=== PATIENT | female | born 1945 | race American Indian/Alaskan Native ===

== ENCOUNTER 2019-04-17 10:41 | Inpatient (IN) | payer MEDICARE ==
--- NOTE | 2019-04-17 13:24 | Cat Scan Report ---
CT abdomen pelvis wo con INDICATION: GI bleed llq ab pain. TECHNIQUE: All CT scans at this location are performed using the following dose modulation technique: Automated exposure control. CONTRAST: None. COMPARISON: 02/24/2018. CT abdomen: Evaluation of the parenchymal organs demonstrates a cyst at the upper pole of the left ki dney posteriorly measuring 4.3 cm. The remaining parenchymal organs are unremarkable. Negative for abdominal mass, fluid or inflammation. The bowel is not dilated or thickened. A fat-cont aining umbilical hernia is small. CT PELVIS: Negative for pelvic mass, fluid collection or inflammation. Noninflamed diverticula are sc attered within the colon. Status post previous hysterectomy. IMPRESSION: 1. Negative for obstruction or localized inflammation. 2. Nonobstructing colonic diverticulosis. Signer Name: Davide Browne MD Signed: 04/17/2019 1:19 PM Workstation Name: [id number]
--- NOTE | 2019-04-17 13:40 | Emergency Department Report ---
ED General Adult HPI - General Chief complaint: GI Bleed Stated complaint: GI BLEED Time Seen by Provider: 04/17/19 11:08 Source: patient Mode of arrival: Stretcher Limitations: No Limitations - History of Present Illness Initial comments: The patient presents to the emergency department with chief complaint of a GI bleed. Patient was recently discharged from the [facility]ation [facility]. Patient also complains of left lower quadrant abdominal pain as well. Patient denies any chest pain, stress breath, or headache. Upon EMS arrival her systolic blood pressure was in the 70s but arrived to the emergency department with a systolic blood pressure greater than 100 after receiving a liter of fluid. -: Sudden Location: abdomen Radiation: non-radiation Severity scale (0 -10): 5 Quality: aching Consistency: constant Improves with: none Worsens with: none Associated Symptoms: denies other symptoms Treatments Prior to Arrival: none - Related Data Home Medications Medication Instructions Recorded Confirmed Last Taken Acetaminophen [Acetaminophen TAB] 500 mg PO TID 04/12/19 04/12/19 Unknown AtorvaSTATin [Lipitor] 40 mg PO QHS 04/12/19 04/12/19 Unknown Cyclobenzaprine [Flexeril 10 MG 10 mg PO TID PRN 04/12/19 04/12/19 Unknown TAB] Divalproex ER [Depakote ER] 250 mg PO BID 04/12/19 04/12/19 Unknown Doxazosin Mesylate 8 mg PO BID 04/12/19 04/12/19 Unknown Folic Acid/Vit B Complex and C 800 mg PO QDAY 04/12/19 04/12/19 Unknown [Dialyvite 800 Chewable Wafer] Furosemide [Lasix TAB] 40 mg PO QDAY 04/12/19 04/12/19 Unknown Insulin Aspart (Nf) [NovoLOG 100 7 units SUB-Q TID 04/12/19 04/12/19 Unknown UNITS/ML VIAL] Insulin Glargine [Lantus VIAL] 10 unit SUB-Q QHS 04/12/19 04/12/19 Unknown Losartan [Cozaar] 50 mg PO BID 04/12/19 04/12/19 Unknown OLANzapine [Zyprexa] 10 mg PO DAILY 04/12/19 04/12/19 Unknown Pregabalin 25 mg PO QDAY 04/12/19 04/12/19 Unknown Previous Rx's Medication Instructions Recorded Last Taken Type Metoprolol [Lopressor TAB] 50 mg PO BID #60 tablet 04/14/19 Unknown Rx Pantoprazole [Protonix TAB] 40 mg PO BID #60 tablet 04/14/19 Unknown Rx Allergies Allergy/AdvReac Type Severity Reaction Status Date / Time iodine Allergy Unknown Verified 04/17/19 11:03 morphine Allergy Unknown Verified 04/17/19 11:03 Penicillins Allergy Vomiting Verified 04/17/19 11:03 Sulfa (Sulfonamide Allergy Vomiting Verified 04/17/19 11:03 Antibiotics) ED Review of Systems ROS: Stated complaint: GI BLEED Other details as noted in HPI Constitutional: denies: chills, fever Eyes: denies: eye pain, eye discharge, vision change ENT: denies: ear pain, throat pain Respiratory: denies: cough, shortness of breath, wheezing Cardiovascular: denies: chest pain, palpitations Endocrine: no symptoms reported Gastrointestinal: abdominal pain, melena. denies: nausea, diarrhea Genitourinary: denies: urgency, dysuria, discharge Musculoskeletal: denies: back pain, joint swelling, arthralgia Skin: denies: rash, lesions Neurological: denies: headache, weakness, paresthesias Psychiatric: denies: anxiety, depression Hematological/Lymphatic: denies: easy bleeding, easy bruising ED Past Medical Hx - Past Medical History Previous Medical History?: Yes Hx Hypertension: Yes (CHF) Hx CVA: Yes (tia) Hx Heart Attack/AMI: No Hx Congestive Heart Failure: Yes Hx Diabetes: Yes Hx Deep Vein Thrombosis: No Hx Pulmonary Embolism: No Hx GERD: Yes Hx Liver Disease: No Hx Renal Disease: Yes (Chronic kidney disease, episode of acute renal failure s/p knee replacement) Hx Sickle Cell Disease: No Hx Arthritis: Yes Hx Headaches / Migraines: No Hx Seizures: Yes (Quesstionable, not confirmed) Hx Kidney Stones: No Hx Psychiatric Treatment: No Hx Asthma: No Hx COPD: No Hx Tuberculosis: No Hx Dementia: Yes Hx HIV: No - Surgical History Past Surgical History?: Yes Hx Pacemaker: No Hx Internal Defibrillator: No Hx Appendectomy: Yes Additional Surgical History: right knee replacement. Hysterectomy. abdominal exploratory surgery - Social History Smoking Status: Never Smoker - Medications Home Medications: Home Medications Medication Instructions Recorded Confirmed Last Taken Type Acetaminophen [Acetaminophen TAB] 500 mg PO TID 04/12/19 04/12/19 Unknown Histo ry AtorvaSTATin [Lipitor] 40 mg PO QHS 04/12/19 04/12/19 Unknown History Cyclobenzaprine [Flexeril 10 MG 10 mg PO TID PRN 04/12/19 04/12/19 Unknown History TAB] Divalproex ER [Depakote ER] 250 mg PO BID 04/12/19 04/12/19 Unknown History Doxazosin Mesylate 8 mg PO BID 04/12/19 04/12/19 Unknown History Folic Acid/Vit B Complex and C 800 mg PO QDAY 04/12/19 04/12/19 Unknown History [Dialyvite 800 Chewable Wafer] Furosemide [Lasix TAB] 40 mg PO QDAY 04/12/19 04/12/19 Unknown History Insulin Aspart (Nf) [NovoLOG 100 7 units SUB-Q TID 04/12/19 04/12/19 Unknown History UNITS/ML VIAL] Insulin Glargine [Lantus VIAL] 10 unit SUB-Q QHS 04/12/19 04/12/19 Unknown History Losartan [Cozaar] 50 mg PO BID 04/12/19 04/12/19 Unknown History OLANzapine [Zyprexa] 10 mg PO DAILY 04/12/19 04/12/19 Unknown History Pregabalin 25 mg PO QDAY 04/12/19 04/12/19 Unknown History Metoprolol [Lopressor TAB] 50 mg PO BID #60 tablet 04/14/19 Unknown Rx Pantoprazole [Protonix TAB] 40 mg PO BID #60 tablet 04/14/19 Unknown Rx ED Physical Exam - General Limitations: No Limitations General appearance: alert, in no apparent distress - Head Head exam: Present: atraumatic, normocephalic - Eye Eye exam: Present: normal appearance, PERRL, EOMI - ENT ENT exam: Present: mucous membranes moist - Neck Neck exam: Present: normal inspection - Respiratory Respiratory exam: Present: normal lung sounds bilaterally. Absent: respiratory distress - Cardiovascular Cardiovascular Exam: Present: regular rate, normal rhythm. Absent: systolic murmur, diastolic murmur, rubs, gallop - GI/Abdominal GI/Abdominal exam: Present: soft, distended, normal bowel sounds. Absent: tenderness (tpp llq) - Rectal Rectal exam: Present: black stool - Extremities Exam Extremities exam: Present: normal inspection - Back Exam Back exam: Present: normal inspection - Neurological Exam Neurological exam: Present: alert, oriented X3, CN II-XII intact. Absent: motor sensory deficit - Psychiatric Psychiatric exam: Present: normal affect, normal mood - Skin Skin exam: Present: warm, dry, intact, normal color. Absent: rash ED Course Vital Signs 04/17/19 04/17/19 04/17/19 11:30 11:44 11:45 Pulse Rate 110 H 107 H Respiratory 25 H 18 24 Rate Blood Pressure 176/71 O2 Sat by Pulse 91 97 98 Oximetry 04/17/19 04/17/19 12:00 12:15 Pulse Rate 110 H 107 H Respiratory 25 H 24 Rate Blood Pressure 163/81 169/71 O2 Sat by Pulse 98 98 Oximetry ED Medical Decision Making - Lab Data Result diagrams: 04/17/19 13:25 04/17/19 13:25 Lab Results 04/17/19 04/17/19 Range/Units 13:25 13:25 WBC 20.3 H (4.5-11.0) K/mm3 RBC 2.74 L (3.65-5.03) M/mm3 Hgb 8.5 L (10.1-14.3) gm/dl Hct 25.4 L (30.3-42.9) % MCV 93 (79-97) fl MCH 31 (28-32) pg MCHC 33 (30-34) % RDW 17.8 H (13.2-15.2) % Plt Count 313 (140-440) K/mm3 Sodium 140 (137-145) mmol/L Potassium 4.4 D (3.6-5.0) mmol/L Chloride 95.8 L (98-107) mmol/L Carbon Dioxide 23 (22-30) mmol/L Anion Gap 26 mmol/L BUN 40 H (7-17) mg/dL Creatinine 6.0 H D (0.7-1.2) mg/dL Estimated GFR 8 ml/min BUN/Creatinine Ratio 7 % Glucose 98 (65-100) mg/dL Calcium 8.8 (8.4-10.2) mg/dL Total Bilirubin 0.40 (0.1-1.2) mg/dL AST 25 (5-40) units/L ALT 17 (7-56) units/L Alkaline Phosphatase < 5 L (35-129) units/L Total Protein 6.4 (6.3-8.2) g/dL Albumin < 0.2 L (3.9-5) g/dL Albumin/Globulin Ratio 0.0 % - Radiology Data Radiology results: report reviewed - Medical Decision Making After reviewing the patient's prior hospital stay was discovered that her last GI bleed was likely upper in nature and thus Protonix bolus and drip started during his ED stay CT scan shows diverticulosis without diverticulitis Elevated white count was likely secondary to a marginal elevation and acute stress reaction Hemoglobin is 8.5 Patient will be admitted for further evaluation of her recurrent GI bleed and for serial hemoglobin and hematocrits Critical Care Time: Yes Critical care time in (mins) excluding proc time.: 35 Critical care attestation.: If time is entered above; I have spent that time in minutes in the direct care of this critically ill patient, excluding procedure time. ED Disposition Clinical Impression: GI bleed, Diverticulosis Disposition: DC- TO HOME OR SELFCARE Is pt being admited?: Yes Does the pt Need Aspirin: No Condition: Stable Forms: Accompanied Note Time of Disposition: 14:11
[2019-04-17] MEDS ORDERED: PANTOPRAZOLE 40 MG INJ IV ONE ×2 (13:46→14:35)
[2019-04-17 13:54] LABS: Alanine Aminotransferase 17 units/L (7-56); BUN/Creatinine Ratio 7; Blood Urea Nitrogen 40 mg/dL (7-17); Calcium 8.8 mg/dL (8.4-10.2); Hemolysis Index 2
[2019-04-17 13:57] LABS: Hematocrit 25.4 % (30.3-42.9); Hemoglobin 8.5 gm/dl (10.1-14.3); Mean Corpuscular HGB Conc 33 % (30-34); Mean Corpuscular Volume 93 fl (79-97); Red Blood Count 2.74 M/mm3 (3.65-5.03); Red Cell Distribution Width 17.8 % (13.2-15.2)
[2019-04-17 13:59] LABS: Albumin < 0.2 g/dL (3.9-5)
[2019-04-17 14:05] LABS: Platelet Count 313 K/mm3 (140-440)
--- NOTE | 2019-04-17 15:12 | Consultation ---
History of Present Illness - Reason for Consult Consult date: 04/17/19 end stage renal disease - History of Present Illness RFC: ESRD on HD HPI: Ms Herr is a 74 year old F with a PMH of ESRD on HD MWF who has been admitted to the [facility] with GIB. Pt currently denies any CP, SHOB, headache. Pt's BP was low on presentation to the ER and is now better. She is on HD MWF. ROS: As in HPI otherwise 12 point review of systems -ve Past Medical History: diabetes, heart failure, hypertension, other (see HPI) Past Surgical History: appendectomy, , hysterectomy, total knee re placement, Other Social history: lives with family. denies: smoking, alcohol abuse Family history: diabetes, hypertension Medications and Allergies Allergies Allergy/AdvReac Type Severity Reaction Status Date / Time iodine Allergy Unknown Verified 04/17/19 11:03 morphine Allergy Unknown Verified 04/17/19 11:03 Penicillins Allergy Vomiting Verified 04/17/19 11:03 Sulfa (Sulfonamide Allergy Vomiting Verified 04/17/19 11:03 Antibiotics) Home Medications Medication Instructions Recorded Confirmed Last Taken Type Acetaminophen [Acetaminophen TAB] 500 mg PO TID 04/12/19 04/17/19 Unknown History AtorvaSTATin [Lipitor] 40 mg PO QHS 04/12/19 04/17/19 Unknown History Cyclobenzaprine [Flexeril 10 MG 10 mg PO TID PRN 04/12/19 04/17/19 Unknown Hi story TAB] Divalproex ER [Depakote ER] 250 mg PO BID 04/12/19 04/17/19 Unknown History Doxazosin Mesylate 8 mg PO BID 04/12/19 04/17/19 Unknown History Folic Acid/Vit B Complex and C 800 mg PO QDAY 04/12/19 04/17/19 Unknown History [Dialyvite 800 Chewable Wafer] Furosemide [Lasix TAB] 40 mg PO QDAY 04/12/19 04/17/19 Unknown History Insulin Aspart (Nf) [NovoLOG 100 7 units SUB-Q TID 04/12/19 04/17/19 Unknown History UNITS/ML VIAL] Insulin Glargine [Lantus VIAL] 10 unit SUB-Q QHS 04/12/19 04/17/19 Unknown History Losartan [Cozaar] 50 mg PO BID 04/12/19 04/17/19 Unknown History OLANzapine [Zyprexa] 10 mg PO DAILY 04/12/19 04/17/19 Unknown History Pregabalin 25 mg PO QDAY 04/12/19 04/17/19 Unknown History Metoprolol [Lopressor TAB] 50 mg PO BID #60 tablet 04/14/19 04/17/19 Unknown Rx Pantoprazole [Protonix TAB] 40 mg PO BID #60 tablet 04/14/19 04/17/19 Unknown Rx Active Meds: Active Medications Pantoprazole Sodium 80 mg/ (Sodium Chloride) 100 mls @ 10 mls/hr IV DIRECT THAD Exam - Vital Signs Vital signs: Vital Signs Pulse Resp Pulse Ox 110 H 25 H 91 04/17/19 11:30 04/17/19 11:30 04/17/19 11:30 - Physical Exam Narrative exam: GE: Awake HEENT:Normocephalic Neck:Supple CVS:RRR Chest:Coarse BS BL Abd:Soft/BS+ Ext:No cce UG:No Avalos Results - Lab Results 04/17/19 13:25 04/17/19 13:25 Most recent lab results Calcium 8.8 mg/dL (8.4-10.2) 04/17/19 13:25 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 every MWF Seth Durán MD [phone]
[2019-04-17] MEDS ORDERED: SODIUM CHLORIDE 0.9% 100 ML IV PRN (15:20)
[2019-04-17 15:48] LABS: Band Neutrophils # (Manual) 0.4 K/mm3; Eosinophils % (Manual) 0 % (0.0-4.3); Total Cells Counted 100
[2019-04-17 15:49] LABS: Basophils % (Manual) 0 % (0.0-1.8)
[2019-04-17 15:50] LABS: Hypochromasia Few; Platelet Estimate Consistent w Auto; Target Cells Few
[2019-04-17] MEDS ORDERED: MORPHINE 2 MG/1 ML INJ IV PRN (17:02)
[2019-04-17] MEDS ORDERED: ACETAMINOPHEN 325 MG TAB PO PRN (17:02)
[2019-04-17] MEDS ORDERED: METOCLOPRAMIDE 10 MG/2 ML INJ IV PRN (17:02)
[2019-04-17] MEDS ORDERED: ONDANSETRON 4 MG/2 ML INJ IV PRN (17:02)
[2019-04-17] MEDS: PANTOPRAZOLE 80 MG in SODIUM CHLORIDE 0.9% 100 ML IV SCH (17:37)
[2019-04-17] MEDS: D5W/0.9% NACL 1,000 ML IV SCH (17:50)
[2019-04-17] MEDS ORDERED: SODIUM CHLORIDE 0.9% 500 ML 500 ML IV ONE (18:03)
[2019-04-17] MEDS ORDERED: cloNIDine TTS 0.3 MG/24 HR PATCH TD SCH (19:00)
[2019-04-17] MEDS: INSULIN LISPRO 100 UNIT/ML SUB-Q SCH (20:34)
[2019-04-17 22:10] LABS: INR 1.3 (0.87-1.13)
[2019-04-17 22:12] LABS: Partial Thromboplastin Time 48.5 Sec. (24.2-36.6)
[2019-04-18] MEDS: INSULIN LISPRO 100 UNIT/ML SUB-Q SCH ×4 (00:22→17:19)
[2019-04-18 01:32] LABS: Hematocrit 21.2 % (30.3-42.9)
[2019-04-18] MEDS: PANTOPRAZOLE 80 MG in SODIUM CHLORIDE 0.9% 100 ML IV SCH (03:01)
[2019-04-18 04:48] LABS: Mean Corpuscular HGB Conc 33 % (30-34); Mean Corpuscular Volume 92 fl (79-97); Platelet Count 297 K/mm3 (140-440); Red Blood Count 2.27 M/mm3 (3.65-5.03)
[2019-04-18 05:09] LABS: Albumin 2.6 g/dL (3.9-5); Calcium 8.7 mg/dL (8.4-10.2)
[2019-04-18 05:44] LABS: Total Cells Counted 100
[2019-04-18 05:45] LABS: Anisocytosis Few; Band Neutrophils # (Manual) 0.1 K/mm3; Basophils % (Manual) 0 % (0.0-1.8); Eosinophils % (Manual) 0 % (0.0-4.3); Hypochromasia Few
[2019-04-18 05:47] LABS: Platelet Estimate Consistent w Auto; Target Cells Rare
--- NOTE | 2019-04-18 06:51 | History and Physical Report ---
History of Present Illness Date of examination: 04/17/19 Date of admission: 04/17/19 14:12 Chief complaint: Lower GI bleed 1 day History of present illness: 74 y/o AAF with multiple medical problems including HT CHF and ESRD comes in for GI bleed.Has BRBPR since yesterday.On arrival in ED patient was hypotensive.BP improved with IV fluids.Patient had recent GI bleed and had EGD.But no colonoscopy. Past Medical History Previous Medical History?: Yes Hypertension: Yes (CHF) CVA: Yes (tia) Congestive Heart Failure: Yes Diabetes GERD: Yes Renal Disease: Yes (Chronic kidney disease, episode of acute renal failure s/p knee replacement) Arthritis: Yes Seizures: Yes Dementia: Yes Surgical History Past Surgical History?: Yes Appendectomy: Yes Additional Surgical History: right knee replacement. Hysterectomy. abdominal exploratory surgery Social History Smoking Status: Never Smoker Family History Htn - Medications Home Medications: Home Medications Medication Instructions Recorded Confirmed Last Taken Type Acetaminophen [Acetaminophen TAB] 500 mg PO TID 04/12/19 04/12/19 Unknown Hi story AtorvaSTATin [Lipitor] 40 mg PO QHS 04/12/19 04/12/19 Unknown History Cyclobenzaprine [Flexeril 10 MG 10 mg PO TID PRN 04/12/19 04/12/19 Unknown History TAB] Divalproex ER [Depakote ER] 250 mg PO BID 04/12/19 04/12/19 Unknown History Doxazosin Mesylate 8 mg PO BID 04/12/19 04/12/19 Unknown History Folic Acid/Vit B Complex and C 800 mg PO QDAY 04/12/19 04/12/19 Unknown History [Dialyvite 800 Chewable Wafer] Furosemide [Lasix TAB] 40 mg PO QDAY 04/12/19 04/12/19 Unknown History Insulin Aspart (Nf) [NovoLOG 100 7 units SUB-Q TID 04/12/19 04/12/19 Unknown History UNITS/ML VIAL] Insulin Glargine [Lantus VIAL] 10 unit SUB-Q QHS 04/12/19 04/12/19 Unknown Hist ory Losartan [Cozaar] 50 mg PO BID 04/12/19 04/12/19 Unknown History OLANzapine [Zyprexa] 10 mg PO DAILY 04/12/19 04/12/19 Unknown History Pregabalin 25 mg PO QDAY 04/12/19 04/12/19 Unknown History Metoprolol [Lopressor TAB] 50 mg PO BID #60 tablet 04/14/19 Unknown Rx Pantoprazole [Protonix TAB] 40 mg PO BID #60 tablet 04/14/19 Unknown Rx Review of Systems ROS: Stated complaint: GI BLEED Other details as noted in HPI Constitutional: denies: chills, fever Eyes: denies: eye pain, eye discharge, vision change ENT: denies: ear pain, throat pain Respiratory: denies: cough, shortness of breath, wheezing Cardiovascular: denies: chest pain, palpitations Endocrine: no symptoms reported Gastrointestinal: abdominal pain, melena. denies: nausea, diarrhea Genitourinary: denies: urgency, dysuria, discharge Musculoskeletal: denies: back pain, joint swelling, arthralgia Skin: denies: rash, lesions Neurological: denies: headache, weakness, paresthesias Psychiatric: denies: anxiety, depression Hematological/Lymphatic: denies: easy bleeding, easy bruising Medications and Allergies Allergies Allergy/AdvReac Type Severity Reaction Status Date / Time iodine Allergy Unknown Verified 04/17/19 11:03 morphine Allergy Unknown Verified 04/17/19 11:03 Penicillins Allergy Vomiting Verified 04/17/19 11:03 Sulfa (Sulfonamide Allergy Vomiting Verified 04/17/19 11:03 Antibiotics) Home Medications Medication Instructions Recorded Confirmed Last Taken Type Acetaminophen [Acetaminophen TAB] 500 mg PO TID 04/12/19 04/17/19 Unknown History AtorvaSTATin [Lipitor] 40 mg PO QHS 04/12/19 04/17/19 Unknown History Cyclobenzaprine [Flexeril 10 MG 10 mg PO TID PRN 04/12/19 04/17/19 Unknown History TAB] Divalproex ER [Depakote ER] 250 mg PO BID 04/12/19 04/17/19 Unknown History Doxazosin Mesylate 8 mg PO BID 04/12/19 04/17/19 Unknown History Folic Acid/Vit B Complex and C 800 mg PO QDAY 04/12/19 04/17/19 Unknown History [Dialyvite 800 Chewable Wafer] Furosemide [Lasix TAB] 40 mg PO QDAY 04/12/19 04/17/19 Unknown History Insulin Aspart (Nf) [NovoLOG 100 7 units SUB-Q TID 04/12/19 04/17/19 Unknown His tory UNITS/ML VIAL] Insulin Glargine [Lantus VIAL] 10 unit SUB-Q QHS 04/12/19 04/17/19 Unknown History Losartan [Cozaar] 50 mg PO BID 04/12/19 04/17/19 Unknown History OLANzapine [Zyprexa] 10 mg PO DAILY 04/12/19 04/17/19 Unknown History Pregabalin 25 mg PO QDAY 04/12/19 04/17/19 Unknown History Metoprolol [Lopressor TAB] 50 mg PO BID #60 tablet 04/14/19 04/17/19 Unknown Rx Pantoprazole [Protonix TAB] 40 mg PO BID #60 tablet 04/14/19 04/17/19 Unknown Rx Active Meds: Active Medications Clonidine HCl (Catapres-Tts Patch) 0.3 mg TD Temple [facility] Last Admin: 04/17/19 21:05 Dose: 0.3 mg Documented by: Hydromorphone HCl (Dilaudid) 0.5 mg IV Q3H PRN PRN Reason: Pain , Severe (7-10) Pantoprazole Sodium 80 mg/ (Sodium Chloride) 100 mls @ 10 mls/hr IV DIRECT [facility] Last Admin: 04/18/19 03:01 Dose: 8 mg/hr, 10 mls/hr Documented by: Sodium Chloride (Nacl 0.9%) 100 mls @ 999 mls/hr IV BRIGIDA PRN PRN Reason: Hypotension Dextrose/Sodium Chloride (D5ns) 1,000 mls @ 42 mls/hr IV DIRECT [facility] Last Admin: 04/17/19 17:50 Dose: 75 mls/hr Documented by: Insulin Human Lispro (Humalog) 0 unit SUB-Q Q6HR [facility]; Protocol Last Admin: 04/18/19 00:22 Dose: Not Given Documented by: Metoclopramide HCl (Reglan) 10 mg IV Q6H PRN PRN Reason: Nausea And Vomiting Morphine Sulfate (Morphine) 2 mg IV Q4H PRN PRN Reason: Pain, Moderate (4-6) Ondansetron HCl (Zofran) 4 mg IV Q3H PRN PRN Reason: Nausea And Vomiting Sodium Chloride (Sodium Chloride Flush Syringe 10 Ml) 10 ml IV BID [facility] Last Admin: 04/17/19 21:07 Dose: 10 ml Documented by: Sodium Chloride (Sodium Chloride Flush Syringe 10 Ml) 10 ml IV PRN PRN PRN Reason: LINE FLUSH Exam - Constitutional Vitals: Temp Pulse Resp BP Pulse Ox 99.5 F 103 H 20 147/60 92 04/18/19 02:37 04/18/19 02:37 04/18/19 02:37 04/18/19 03:01 04/18/19 02:37 General appearance: Present: no acute distress, well-nourished - EENT Eyes: Present: PERRL ENT: hearing intact, clear oral mucosa - Neck Neck: Present: supple, normal ROM - Respiratory Respiratory effort: normal Respiratory: bilateral: CTA - Cardiovascular Heart rate: 78 Rhythm: regular Heart Sounds: Present: S1 & S2. Absent: rub, click - Extremities Extremities: pulses symmetrical, No edema Peripheral Pulses: within normal limits - Abdominal General gastrointestinal: Present: soft, non-tender, non-distended, normal bowel sounds Female genitourinary: Present: normal - Rectal Rectal Exam: stool bloody - Integumentary Integumentary: Present: clear, warm, dry - Musculoskeletal Musculoskeletal: gait normal, strength equal bilaterally - Psychiatric Psychiatric: appropriate mood/affect, intact judgment & insight - Neurologic Neurologic: CNII-XII intact, moves all extremities - Allied Health Allied health notes reviewed: nursing, case management Results - Labs CBC & Chem 7: 04/18/19 04:32 04/18/19 04:32 Labs: Laboratory Last Values WBC 12.4 K/mm3 (4.5-11.0) H 04/18/19 04:32 RBC 2.27 M/mm3 (3.65-5.03) L 04/18/19 04:32 Hgb 7.0 gm/dl (10.1-14.3) L 04/18/19 04:32 Hct 21.0 % (30.3-42.9) L 04/18/19 04:32 MCV 92 fl (79-97) 04/18/19 04:32 MCH 31 pg (28-32) 04/18/19 04:32 MCHC 33 % (30-34) 04/18/19 04:32 RDW 17.0 % (13.2-15.2) H 04/18/19 04:32 Plt Count 297 K/mm3 (140-440) 04/18/19 04:32 Add Manual Diff Complete 04/18/19 04:32 Total Counted 100 04/18/19 04:32 Seg Neuts % (Manual) 79.0 % (40.0-70.0) H 04/18/19 04:32 Band Neutrophils % 1.0 % 04/18/19 04:32 Lymphocytes % (Manual) 8.0 % (13.4-35.0) L 04/18/19 04:32 Reactive Lymphs % (Man) 0 % 04/18/19 04:32 Monocytes % (Manual) 8.0 % (0.0-7.3) H 04/18/19 04:32 Eosinophils % (Manual) 0 % (0.0-4.3) 04/18/19 04:32 Basophils % (Manual) 0 % (0.0-1.8) 04/18/19 04:32 Metamyelocytes % 4.0 % 04/18/19 04:32 Myelocytes % 0 % 04/18/19 04:32 Promyelocytes % 0 % 04/18/19 04:32 Blast Cells % 0 % 04/18/19 04:32 Nucleated RBC % Not Reportable 04/18/19 04:32 Seg Neutrophils # Man 9.8 K/mm3 (1.8-7.7) H 04/18/19 04:32 Band Neutrophils # 0.1 K/mm3 04/18/19 04:32 Lymphocytes # (Manual) 1.0 K/mm3 (1.2-5.4) L 04/18/19 04:32 Abs React Lymphs (Man) 0.0 K/mm3 04/18/19 04:32 Monocytes # (Manual) 1.0 K/mm3 (0.0-0.8) H 04/18/19 04:32 Eosinophils # (Manual) 0.0 K/mm3 (0.0-0.4) 04/18/19 04:32 Basophils # (Manual) 0.0 K/mm3 (0.0-0.1) 04/18/19 04:32 Metamyelocytes # 0.5 K/mm3 04/18/19 04:32 Myelocytes # 0.0 K/mm3 04/18/19 04:32 Promyelocytes # 0.0 K/mm3 04/18/19 04:32 Blast Cells # 0.0 K/mm3 04/18/19 04:32 WBC Morphology Not Reportable 04/18/19 04:32 Hypersegmented Neuts Not Reportable 04/18/19 04:32 Hyposegmented Neuts Not Reportable 04/18/19 04:32 Hypogranular Neuts Not Reportable 04/18/19 04:32 Smudge Cells Not Reportable 04/18/19 04:32 Toxic Granulation Not Reportable 04/18/19 04:32 Toxic Vacuolation Not Reportable 04/18/19 04:32 Dohle Bodies Not Reportable 04/18/19 04:32 Pelger-Huet Anomaly Not Reportable 04/18/19 04:32 [place] Rods Not Reportable 04/18/19 04:32 Platelet Estimate Consistent w auto 04/18/19 04:32 Clumped Platelets Not Reportable 04/18/19 04:32 Plt Clumps, EDTA Not Reportable 04/18/19 04:32 Large Platelets Not Reportable 04/18/19 04:32 Giant Platelets Not Reportable 04/18/19 04:32 Platelet Satelliting Not Reportable 04/18/19 04:32 Plt Morphology Comment Not Reportable 04/18/19 04:32 RBC Morphology Not Reportable 04/18/19 04:32 Dimorphic RBCs Not Reportable 04/18/19 04:32 Polychromasia Not Reportable 04/18/19 04:32 Hypochromasia Few 04/18/19 04:32 Poikilocytosis Not Reportable 04/18/19 04:32 Anisocytosis Few 04/18/19 04:32 Microcytosis Not Reportable 04/18/19 04:32 Macrocytosis Not Reportable 04/18/19 04:32 Spherocytes Not Reportable 04/18/19 04:32 Pappenheimer Bodies Not Reportable 04/18/19 04:32 Sickle Cells Not Reportable 04/18/19 04:32 Target Cells Rare 04/18/19 04:32 Tear Drop Cells Not Reportable 04/18/19 04:32 Ovalocytes Not Reportable 04/18/19 04:32 Helmet Cells Not Reportable 04/18/19 04:32 [place] Bodies Not Reportable 04/18/19 04:32 [place] Rings Not Reportable 04/18/19 04:32 Hemant Cells Not Reportable 04/18/19 04:32 Bite Cells Not Reportable 04/18/19 04:32 Crenated Cell Not Reportable 04/18/19 04:32 Elliptocytes Rare 04/18/19 04:32 Acanthocytes (Spur) Not Reportable 04/18/19 04:32 Rouleaux Not Reportable 04/18/19 04:32 Hemoglobin C Crystals Not Reportable 04/18/19 04:32 Schistocytes Not Reportable 04/18/19 04:32 Malaria parasites Not Reportable 04/18/19 04:32 Dimitri Bodies Not Reportable 04/18/19 04:32 Hem Pathologist Commnt No 04/18/19 04:32 PT 16.4 Sec. (12.2-14.9) H 04/17/19 21:35 INR 1.30 (0.87-1.13) H 04/17/19 21:35 APTT 48.5 Sec. (24.2-36.6) H 04/17/19 21:35 Sodium 140 mmol/L (137-145) 04/18/19 04:32 Potassium 4.0 mmol/L (3.6-5.0) 04/18/19 04:32 Chloride 98.2 mmol/L (98-107) 04/18/19 04:32 Carbon Dioxide 24 mmol/L (22-30) 04/18/19 04:32 Anion Gap 22 mmol/L 04/18/19 04:32 BUN 45 mg/dL (7-17) H 04/18/19 04:32 Creatinine 7.0 mg/dL (0.7-1.2) H 04/18/19 04:32 Estimated GFR 7 ml/min 04/18/19 04:32 BUN/Creatinine Ratio 6 % 04/18/19 04:32 Glucose 123 mg/dL (65-100) H 04/18/19 04:32 POC Glucose 111 (70-105) H 04/17/19 17:47 Hemoglobin A1c < 4.0 % (4-6) L 04/18/19 04:32 Calcium 8.7 mg/dL (8.4-10.2) 04/18/19 04:32 Total Bilirubin 0.40 mg/dL (0.1-1.2) 04/18/19 04:32 AST 19 units/L (5-40) 04/18/19 04:32 ALT 11 units/L (7-56) 04/18/19 04:32 Alkaline Phosphatase 84 units/L (35-129) 04/18/19 04:32 Total Protein 5.9 g/dL (6.3-8.2) L 04/18/19 04:32 Albumin 2.6 g/dL (3.9-5) L 04/18/19 04:32 Albumin/Globulin Ratio 0.8 % 04/18/19 04:32 Blood Type A POSITIVE 04/17/19 21:35 Antibody Screen Negative 04/17/19 21:35 Short CBC 04/17/19 04/18/19 04/18/19 Range/Units 13:25 00:32 04:32 WBC 20.3 H 12.4 H (4.5-11.0) K/mm3 Hgb 8.5 L 7.0 L 7.0 L (10.1-14.3) gm/dl Hct 25.4 L 21.2 L 21.0 L (30.3-42.9) % Plt Count 313 297 (140-440) K/mm3 BMP 04/17/19 04/18/19 13:25 04:32 Sodium 140 140 Potassium 4.4 D 4.0 Chloride 95.8 L 98.2 Carbon Dioxide 23 24 BUN 40 H 45 H Creatinine 6.0 H D 7.0 H Glucose 98 123 H Calcium 8.8 8.7 Liver Function 04/17/19 04/18/19 Range/Units 13:25 04:32 Total Bilirubin 0.40 0.40 (0.1-1.2) mg/dL AST 25 19 (5-40) units/L ALT 17 11 (7-56) units/L Alkaline Phosphatase < 5 L 84 (35-129) units/L Albumin < 0.2 L 2.6 L (3.9-5) g/dL - Imaging and Cardiology Imaging and Cardiology: CT abd IMPRESSION: 1. Negative for obstruction or localized inflammation. 2. Nonobstructing colonic diverticulosis. Assessment and Plan Advance Directives: Yes (FC) VTE prophylaxis?: Mechanical Plan of care discussed with patient/family: Yes - Patient Problems (1) GI bleed Current Visit: Yes Status: Acute Qualifiers: GI bleed type/associated pathology: diverticulosis Qualified Code(s): K57.91 - Diverticulosis of intestine, part unspecified, without perforation or abscess with bleeding Plan to address problem: Transfuse one unit prbc to 2 units prbc GI consult For Colonoscopy (2) Diverticulosis Current Visit: Yes Status: Chronic Plan to address problem: On CT abdomen High fiber diet (3) ESRD on hemodialysis Current Visit: No Status: Chronic Plan to address problem: Cont HD (4) HTN (hypertension) Current Visit: No Status: Chronic Qualifiers: Hypertension type: essential hypertension Qualified Code(s): I10 - Essent ial (primary) hypertension Plan to address problem: On catapress patch for now Resume antihypertensives when she starts eating (5) IDDM (insulin dependent diabetes mellitus) Current Visit: No Status: Chronic Plan to address problem: Insulin coverage for now Check A1c (6) Peripheral neuropathy Current Visit: No Status: Chronic Qualifiers: Peripheral neuropathy type: polyneuropathy, unspecified Qualified Code(s): G62.9 - Polyneuropathy, unspecified Plan to address problem: Hold Gabapentin for now (7) DVT prophylaxis Current Visit: No Status: Acute Plan to address problem: On Scd'sand GI prophylaxis
--- NOTE | 2019-04-18 07:45 | Progress Note ---
Assessment and Plan Assessment and plan: Patient is a 74-year-old female with HTN, CHF, DM, ESRD on HD (M, W, F), TIA, obesity hypoventilation syndrome presents to ED for evaluation via EMS noted with bright red blood per rectum and hypotensive. She was recently discharged from the hospital after an upper endoscopy showed a clean-based ulcer with antral gastritis without bleeding and was to follow with GI for pathology. During that admission the family had declined rehab but wanted the patient to spend an additional day in the hospital for dialysis prior to being discharged repeat hemoglobin actually shows improvement prior to the patient being discharged the patient was discharged on PPI twice daily and to avoid NSAIDs. * She returns as noted above with continued complaint of bright red blood per rectum and with leukocytosis and worsening anemia compared to discharge. * GI has been consulted for possible colonoscopy as patient with recurrent bleed Symptomatic anemia GI bleed possible lower GI bleed possible diverticular bleed Hypotensive Antral gastritis End-stage renal disease Chronic pain syndrome Morbid obesity Diabetes mellitus Peripheral neuropathy Stable congestive heart failure systolic presumed Leukocytosis likely reactive-improving Anemia of chronic disease SIRS without organ dysfunction Diverticulosis Plan Supportive care Transfuse 1 unit packed red blood cell Await colonoscopy results if no source identified may need to rule out diverticular bleed Nephrology consult, continue hemodialysis Strongly recommend rehab on discharge inpatient or outpatient. Diabetic management with Accu-Cheks Continue to hold gabapentin DVT and GI prophylaxis with SCDs and PPI. Will update family once we have good control or understanding of why patient has repeated bleed History Interval history: Patient is seen and examined, remains lethargic, denies abdominal pain. Continues to report generalized weakness but vehemently declines rehab. Hospitalist Physical - Physical exam Narrative exam: VITAL SIGNS: Reviewed. GENERAL: The patient appears normally developed,lethargic, chronically ill appearing. Vital signs as documented. HEAD: No signs of head trauma. EYES: Pupils are equal. Extraocular motions intact. EARS: Hearing grossly intact. MOUTH: Oropharynx is normal. NECK: No adenopathy, no JVD. CHEST: Chest with diminished breath sounds bilaterally. No wheezes, rales, or rhonchi. CARDIAC: Regular rate and rhythm. S1 and S2, without murmurs, gallops, or rubs. VASCULAR: No Edema. Peripheral pulses normal and equal in all extremities. ABDOMEN: Soft, non tender and non distended. No rebound or guarding, and no masses palpated. Bowel Sounds normal. MUSCULOSKELETAL: Extremities without clubbing, cyanosis or edema. NEUROLOGIC EXAM: lethergic, awake, and oriented x 3 generalized weakness. Speech normal. Follows commands. PSYCHIATRIC: Mood normal. SKIN: detail exam as documented in skin assessment - Constitutional Vitals: Temp Pulse Resp BP Pulse Ox 99.5 F 103 H 20 147/60 92 04/18/19 02:37 04/18/19 02:37 04/18/19 02:37 04/18/19 03:01 04/18/19 02:37 General appearance: Present: no acute distress, well-nourished Results - Labs CBC & Chem 7: 04/18/19 04:32 04/18/19 04:32 Labs: Laboratory Last Values WBC 12.4 K/mm3 (4.5-11.0) H 04/18/19 04:32 RBC 2.27 M/mm3 (3.65-5.03) L 04/18/19 04:32 Hgb 7.0 gm/dl (10.1-14.3) L 04/18/19 04:32 Hct 21.0 % (30.3-42.9) L 04/18/19 04:32 MCV 92 fl (79-97) 04/18/19 04:32 MCH 31 pg (28-32) 04/18/19 04:32 MCHC 33 % (30-34) 04/18/19 04:32 RDW 17.0 % (13.2-15.2) H 04/18/19 04:32 Plt Count 297 K/mm3 (140-440) 04/18/19 04:32 Add Manual Diff Complete 04/18/19 04:32 Total Counted 100 04/18/19 04:32 Seg Neuts % (Manual) 79.0 % (40.0-70.0) H 04/18/19 04:32 Band Neutrophils % 1.0 % 04/18/19 04:32 Lymphocytes % (Manual) 8.0 % (13.4-35.0) L 04/18/19 04:32 Reactive Lymphs % (Man) 0 % 04/18/19 04:32 Monocytes % (Manual) 8.0 % (0.0-7.3) H 04/18/19 04:32 Eosinophils % (Manual) 0 % (0.0-4.3) 04/18/19 04:32 Basophils % (Manual) 0 % (0.0-1.8) 04/18/19 04:32 Metamyelocytes % 4.0 % 04/18/19 04:32 Myelocytes % 0 % 04/18/19 04:32 Promyelocytes % 0 % 04/18/19 04:32 Blast Cells % 0 % 04/18/19 04:32 Nucleated RBC % Not Reportable 04/18/19 04:32 Seg Neutrophils # Man 9.8 K/mm3 (1.8-7.7) H 04/18/19 04:32 Band Neutrophils # 0.1 K/mm3 04/18/19 04:32 Lymphocytes # (Manual) 1.0 K/mm3 (1.2-5.4) L 04/18/19 04:32 Abs React Lymphs (Man) 0.0 K/mm3 04/18/19 04:32 Monocytes # (Manual) 1.0 K/mm3 (0.0-0.8) H 04/18/19 04:32 Eosinophils # (Manual) 0.0 K/mm3 (0.0-0.4) 04/18/19 04:32 Basophils # (Manual) 0.0 K/mm3 (0.0-0.1) 04/18/19 04:32 Metamyelocytes # 0.5 K/mm3 04/18/19 04:32 Myelocytes # 0.0 K/mm3 04/18/19 04:32 Promyelocytes # 0.0 K/mm3 04/18/19 04:32 Blast Cells # 0.0 K/mm3 04/18/19 04:32 WBC Morphology Not Reportable 04/18/19 04:32 Hypersegmented Neuts Not Reportable 04/18/19 04:32 Hyposegmented Neuts Not Reportable 04/18/19 04:32 Hypogranular Neuts Not Reportable 04/18/19 04:32 Smudge Cells Not Reportable 04/18/19 04:32 Toxic Granulation Not Reportable 04/18/19 04:32 Toxic Vacuolation Not Reportable 04/18/19 04:32 Dohle Bodies Not Reportable 04/18/19 04:32 Pelger-Huet Anomaly Not Reportable 04/18/19 04:32 [place] Rods Not Reportable 04/18/19 04:32 Platelet Estimate Consistent w auto 04/18/19 04:32 Clumped Platelets Not Reportable 04/18/19 04:32 Plt Clumps, EDTA Not Reportable 04/18/19 04:32 Large Platelets Not Reportable 04/18/19 04:32 Giant Platelets Not Reportable 04/18/19 04:32 Platelet Satelliting Not Reportable 04/18/19 04:32 Plt Morphology Comment Not Reportable 04/18/19 04:32 RBC Morphology Not Reportable 04/18/19 04:32 Dimorphic RBCs Not Reportable 04/18/19 04:32 Polychromasia Not Reportable 04/18/19 04:32 Hypochromasia Few 04/18/19 04:32 Poikilocytosis Not Reportable 04/18/19 04:32 Anisocytosis Few 04/18/19 04:32 Microcytosis Not Reportable 04/18/19 04:32 Macrocytosis Not Reportable 04/18/19 04:32 Spherocytes Not Reportable 04/18/19 04:32 Pappenheimer Bodies Not Reportable 04/18/19 04:32 Sickle Cells Not Reportable 04/18/19 04:32 Target Cells Rare 04/18/19 04:32 Tear Drop Cells Not Reportable 04/18/19 04:32 Ovalocytes Not Reportable 04/18/19 04:32 Helmet Cells Not Reportable 04/18/19 04:32 [place] Bodies Not Reportable 04/18/19 04:32 [place] Rings Not Reportable 04/18/19 04:32 Hemant Cells Not Reportable 04/18/19 04:32 Bite Cells Not Reportable 04/18/19 04:32 Crenated Cell Not Reportable 04/18/19 04:32 Elliptocytes Rare 04/18/19 04:32 Acanthocytes (Spur) Not Reportable 04/18/19 04:32 Rouleaux Not Reportable 04/18/19 04:32 Hemoglobin C Crystals Not Reportable 04/18/19 04:32 Schistocytes Not Reportable 04/18/19 04:32 Malaria parasites Not Reportable 04/18/19 04:32 Dimitri Bodies Not Reportable 04/18/19 04:32 Hem Pathologist Commnt No 04/18/19 04:32 PT 16.4 Sec. (12.2-14.9) H 04/17/19 21:35 INR 1.30 (0.87-1.13) H 04/17/19 21:35 APTT 48.5 Sec. (24.2-36.6) H 04/17/19 21:35 Sodium 140 mmol/L (137-145) 04/18/19 04:32 Potassium 4.0 mmol/L (3.6-5.0) 04/18/19 04:32 Chloride 98.2 mmol/L (98-107) 04/18/19 04:32 Carbon Dioxide 24 mmol/L (22-30) 04/18/19 04:32 Anion Gap 22 mmol/L 04/18/19 04:32 BUN 45 mg/dL (7-17) H 04/18/19 04:32 Creatinine 7.0 mg/dL (0.7-1.2) H 04/18/19 04:32 Estimated GFR 7 ml/min 04/18/19 04:32 BUN/Creatinine Ratio 6 % 04/18/19 04:32 Glucose 123 mg/dL (65-100) H 04/18/19 04:32 POC Glucose 111 (70-105) H 04/17/19 17:47 Hemoglobin A1c < 4.0 % (4-6) L 04/18/19 04:32 Calcium 8.7 mg/dL (8.4-10.2) 04/18/19 04:32 Total Bilirubin 0.40 mg/dL (0.1-1.2) 04/18/19 04:32 AST 19 units/L (5-40) 04/18/19 04:32 ALT 11 units/L (7-56) 04/18/19 04:32 Alkaline Phosphatase 84 units/L (35-129) 04/18/19 04:32 Total Protein 5.9 g/dL (6.3-8.2) L 04/18/19 04:32 Albumin 2.6 g/dL (3.9-5) L 04/18/19 04:32 Albumin/Globulin Ratio 0.8 % 04/18/19 04:32 Blood Type A POSITIVE 04/17/19 21:35 Antibody Screen Negative 04/17/19 21:35 Active Medications - Current Medications Current Medications: Generic Name Dose Route Start Last Admin Trade Name Freq PRN Reason Stop Dose Admin Clonidine HCl 0.3 mg 04/17/19 19:00 04/17/19 21:05 Catapres-Tts Patch TD 0.3 mg Temple THAD Administration Hydromorphone HCl 0.5 mg 04/17/19 17:02 Dilaudid IV Q3H PRN Pain , Severe (7-10) Pantoprazole Sodium 80 mg/ 100 mls @ 10 mls/hr 04/17/19 14:00 04/18/19 03:01 Sodium Chloride IV 8 mg/hr DIRECT THAD 10 mls/hr Administration 8 MG/HR Sodium Chloride 100 mls @ 999 mls/hr 04/17/19 15:20 Nacl 0.9% IV BRIGIDA PRN Hypotension Dextrose/Sodium Chloride 1,000 mls @ 42 mls/hr 04/17/19 18:00 04/17/19 17:50 D5ns IV 75 mls/hr DIRECT THAD Administration Insulin Human Lispro 0 unit 04/17/19 19:00 04/18/19 00:22 Humalog SUB-Q Not Given Q6HR THAD Protocol Metoclopramide HCl 10 mg 04/17/19 17:02 Reglan IV Q6H PRN Nausea And Vomiting Morphine Sulfate 2 mg 04/17/19 17:02 Morphine IV Q4H PRN Pain, Moderate (4-6) Ondansetron HCl 4 mg 04/17/19 17:02 Zofran IV Q3H PRN Nausea And Vomiting Sodium Chloride 10 ml 04/17/19 22:00 04/17/19 21:07 Sodium Chloride Flush Syringe 10 Ml IV 10 ml BID THAD Administration Sodium Chloride 10 ml 04/17/19 17:02 Sodium Chloride Flush Syringe 10 Ml IV PRN PRN LINE FLUSH
[2019-04-18] MEDS ORDERED: SODIUM CHLORIDE 0.9% 500 ML 500 ML IV SCH (08:00)
--- NOTE | 2019-04-18 11:01 | Gastroenterology Consultation ---
<RAE HERNANDEZ - Last Filed: 04/18/19 11:22> History of Present Illness - Reason for Consult Consult date: 04/18/19 GI bleed Requesting physician: JENNIFER ARANDA - History of Present Illness Patient is a 74 y/o female with PMH of CHF, DM, HTN, HLD, TIA, obesity, ESRD on HD, chronic anemia (s/p recent bone marrow bx), seizures, dementia, and GERD who presented yesterday to ED with recurrent rectal bleeding with bright red blood after being discharged 2 days ago for GI bleed thought to be diverticular in nature. This morning patient was resting in bed receiving dialysis w/o acute distress. BM x 1 overnight with small about of blood per nursing but no signs of active bleeding this am. No hematemesis or melena. Has continued mild chronic abd discomfort but denies CP, SOB, wt loss, vomiting, diarrhea, or constipation. During recent hospitalization, bleeding scan upon admission was positive for bleeding in the midepigastrium and she underwent EGD that revealed gastritis and a small clean based ulcer w/o bleeding. Last colonoscopy 09/[address] Frazier for anemia that showed diverticulosis, internal hemorrhoids, and mild irritation in rectum with bx results benign. Previously on daily ASA but currently being held due to ulcer as above. Abd CT showed diverticulosis but no acute GI process. Past History Past Medical History: other (see HPI) Past Surgical History: appendectomy, , hysterectomy, total knee replacement Social history: lives with family. denies: smoking, alcohol abuse Medications and Allergies Allergies Allergy/AdvReac Type Severity Reaction Status Date / Time iodine Allergy Unknown Verified 04/17/19 11:03 morphine Allergy Unknown Verified 04/17/19 11:03 Penicillins Allergy Vomiting Verified 04/17/19 11:03 Sulfa (Sulfonamide Allergy Vomiting Verified 04/17/19 11:03 Antibiotics) Home Medications Medication Instructions Recorded Confirmed Last Taken Type Acetaminophen [Acetaminophen TAB] 500 mg PO TID 04/12/19 04/17/19 Unknown History AtorvaSTATin [Lipitor] 40 mg PO QHS 04/12/19 04/17/19 Unknown History Cyclobenzaprine [Flexeril 10 MG 10 mg PO TID PRN 04/12/19 04/17/19 Unknown History TAB] Divalproex ER [Depakote ER] 250 mg PO BID 04/12/19 04/17/19 Unknown History Doxazosin Mesylate 8 mg PO BID 04/12/19 04/17/19 Unknown History Folic Acid/Vit B Complex and C 800 mg PO QDAY 04/12/19 04/17/19 Unknown History [Dialyvite 800 Chewable Wafer] Furosemide [Lasix TAB] 40 mg PO QDAY 04/12/19 04/17/19 Unknown History Insulin Aspart (Nf) [NovoLOG 100 7 units SUB-Q TID 04/12/19 04/17/19 Unknown History UNITS/ML VIAL] Insulin Glargine [Lantus VIAL] 10 unit SUB-Q QHS 04/12/19 04/17/19 Unknown History Losartan [Cozaar] 50 mg PO BID 04/12/19 04/17/19 Unknown History OLANzapine [Zyprexa] 10 mg PO DAILY 04/12/19 04/17/19 Unknown History Pregabalin 25 mg PO QDAY 04/12/19 04/17/19 Unknown History Metoprolol [Lopressor TAB] 50 mg PO BID #60 tablet 04/14/19 04/17/19 Unknown Rx Pantoprazole [Protonix TAB] 40 mg PO BID #60 tablet 04/14/19 04/17/19 Unknown Rx Active Meds: Active Medications Clonidine HCl (Catapres-Tts Patch) 0.3 mg TD [facility] Last Admin: 04/17/19 21:05 Dose: 0.3 mg Documented by: Hydromorphone HCl (Dilaudid) 0.5 mg IV Q3H PRN PRN Reason: Pain , Severe (7-10) Pantoprazole Sodium 80 mg/ (Sodium Chloride) 100 mls @ 10 mls/hr IV DIRECT [facility] Last Admin: 04/18/19 03:01 Dose: 8 mg/hr, 10 mls/hr Documented by: Sodium Chloride (Nacl 0.9%) 100 mls @ 999 mls/hr IV BRIGIDA PRN PRN Reason: Hypotension Dextrose/Sodium Chloride (D5ns) 1,000 mls @ 42 mls/hr IV DIRECT [facility] Last Admin: 04/17/19 17:50 Dose: 75 mls/hr Documented by: Sodium Chloride (Nacl 0.9% 500 Ml) 500 mls @ 0 mls/hr IV ONCE [facility] Stop: 04/18/19 16:00 Insulin Human Lispro (Humalog) 0 unit SUB-Q Q6HR [facility]; Protocol Last Admin: 04/18/19 09:07 Dose: Not Given Documented by: Metoclopramide HCl (Reglan) 10 mg IV Q6H PRN PRN Reason: Nausea And Vomiting Morphine Sulfate (Morphine) 2 mg IV Q4H PRN PRN Reason: Pain, Moderate (4-6) Ondansetron HCl (Zofran) 4 mg IV Q3H PRN PRN Reason: Nausea And Vomiting Sodium Chloride (Sodium Chloride Flush Syringe 10 Ml) 10 ml IV BID [facility] Last Admin: 04/17/19 21:07 Dose: 10 ml Documented by: Sodium Chloride (Sodium Chloride Flush Syringe 10 Ml) 10 ml IV PRN PRN PRN Reason: LINE FLUSH medications reviewed/updated as required Review of Systems - Review of Systems All systems: negative Gastrointestinal: abdominal pain, BRBPR Exam - Constitutional Vital Signs: Temp Pulse Resp BP Pulse Ox 98.9 F 117 H 18 151/63 95 04/18/19 08:15 04/18/19 10:45 04/18/19 08:15 04/18/19 10:45 04/18/19 07:32 General appearance: no acute distress, obese - EENT Eyes: PERRL, EOM intact ENT: hearing intact - Respiratory Respiratory effort: normal Respiratory: bilateral: diminished - Cardiovascular Rhythm: other (tachycardia) - Gastrointestinal General gastrointestinal: Present: soft, non-tender, non-distended, normal bowel sounds, other (obese) - Integumentary Integumentary: Present: warm, dry - Neurologic Neurological: oriented to person, oriented to place - Labs CBC & Chem 7: 04/18/19 04:32 04/18/19 04:32 Lab Results: Laboratory Results - last 24 hr 04/17/19 04/17/19 04/17/19 13:25 13:25 17:47 WBC 20.3 H RBC 2.74 L Hgb 8.5 L Hct 25.4 L MCV 93 MCH 31 MCHC 33 RDW 17.8 H Plt Count 313 Add Manual Diff Complete Total Counted 100 Seg Neuts % (Manual) 91.0 H Band Neutrophils % 2.0 Lymphocytes % (Manual) 3.0 L Reactive Lymphs % (Man) 0 Monocytes % (Manual) 3.0 Eosinophils % (Manual) 0 Basophils % (Manual) 0 Metamyelocytes % 1.0 Myelocytes % 0 Promyelocytes % 0 Blast Cells % 0 Nucleated RBC % Not Reportable Seg Neutrophils # Man 18.5 H Band Neutrophils # 0.4 Lymphocytes # (Manual) 0.6 L Abs React Lymphs (Man) 0.0 Monocytes # (Manual) 0.6 Eosinophils # (Manual) 0.0 Basophils # (Manual) 0.0 Metamyelocytes # 0.2 Myelocytes # 0.0 Promyelocytes # 0.0 Blast Cells # 0.0 WBC Morphology Not Reportable Hypersegmented Neuts Not Reportable Hyposegmented Neuts Not Reportable Hypogranular Neuts Not Reportable Smudge Cells Not Reportable Toxic Granulation Not Reportable Toxic Vacuolation Not Reportable Dohle Bodies Not Reportable Pelger-Huet Anomaly Not Reportable Burton Rods Not Reportable Platelet Estimate Consistent w auto Clumped Platelets Not Reportable Plt Clumps, EDTA Not Reportable Large Platelets Not Reportable Giant Platelets Not Reportable Platelet Satelliting Not Reportable Plt Morphology Comment Not Reportable RBC Morphology Not Reportable Dimorphic RBCs Not Reportable Polychromasia Few Hypochromasia Few Poikilocytosis Not Reportable Anisocytosis Not Reportable Microcytosis Not Reportable Macrocytosis Not Reportable Spherocytes Not Reportable Pappenheimer Bodies Not Reportable Sickle Cells Not Reportable Target Cells Few Tear Drop Cells Not Reportable Ovalocytes Not Reportable Helmet Cells Not Reportable Weber-Schofield Bodies Not Reportable [place] Rings Not Reportable Hemant Cells Not Reportable Bite Cells Not Reportable Crenated Cell Not Reportable Elliptocytes Not Reportable Acanthocytes (Spur) Not Reportable Rouleaux Not Reportable Hemoglobin C Crystals Not Reportable Schistocytes Not Reportable Malaria parasites Not Reportable Dimitri Bodies Not Reportable Hem Pathologist Commnt No PT INR APTT Sodium 140 Potassium 4.4 D Chloride 95.8 L Carbon Dioxide 23 Anion Gap 26 BUN 40 H Creatinine 6.0 H D Estimated GFR 8 BUN/Creatinine Ratio 7 Glucose 98 POC Glucose 111 H Hemoglobin A1c Calcium 8.8 Total Bilirubin 0.40 AST 25 ALT 17 Alkaline Phosphatase < 5 L Total Protein 6.4 Albumin < 0.2 L Albumin/Globulin Ratio 0.0 Blood Type Antibody Screen 04/17/19 04/17/19 04/18/19 21:35 21:35 00:32 WBC RBC Hgb 7.0 L Hct 21.2 L MCV MCH MCHC RDW Plt Count Add Manual Diff Total Counted Seg Neuts % (Manual) Band Neutrophils % Lymphocytes % (Manual) Reactive Lymphs % (Man) Monocytes % (Manual) Eosinophils % (Manual) Basophils % (Manual) Metamyelocytes % Myelocytes % Promyelocytes % Blast Cells % Nucleated RBC % Seg Neutrophils # Man Band Neutrophils # Lymphocytes # (Manual) Abs React Lymphs (Man) Monocytes # (Manual) Eosinophils # (Manual) Basophils # (Manual) Metamyelocytes # Myelocytes # Promyelocytes # Blast Cells # WBC Morphology Hypersegmented Neuts Hyposegmented Neuts Hypogranular Neuts Smudge Cells Toxic Granulation Toxic Vacuolation Dohle Bodies Pelger-Huet Anomaly Burton Rods Platelet Estimate Clumped Platelets Plt Clumps, EDTA Large Platelets Giant Platelets Platelet Satelliting Plt Morphology Comment RBC Morphology Dimorphic RBCs Polychromasia Hypochromasia Poikilocytosis Anisocytosis Microcytosis Macrocytosis Spherocytes Pappenheimer Bodies Sickle Cells Target Cells Tear Drop Cells Ovalocytes Helmet Cells Weber-Schofield Bodies [place] Cells Bite Cells Crenated Cell Elliptocytes Acanthocytes (Spur) Rouleaux Hemoglobin C Crystals Schistocytes Malaria parasites Dimitri Bodies Hem Pathologist Commnt PT 16.4 H INR 1.30 H APTT 48.5 H Sodium Potassium Chloride Carbon Dioxide Anion Gap BUN Creatinine Estimated GFR BUN/Creatinine Ratio Glucose POC Glucose Hemoglobin A1c Calcium Total Bilirubin AST ALT Alkaline Phosphatase Total Protein Albumin Albumin/Globulin Ratio Blood Type A POSITIVE Antibody Screen Negative 04/18/19 04/18/19 04/18/19 04:32 04:32 04:32 WBC 12.4 H RBC 2.27 L Hgb 7.0 L Hct 21.0 L MCV 92 MCH 31 MCHC 33 RDW 17.0 H Plt Count 297 Add Manual Diff Complete Total Counted 100 Seg Neuts % (Manual) 79.0 H Band Neutrophils % 1.0 Lymphocytes % (Manual) 8.0 L Reactive Lymphs % (Man) 0 Monocytes % (Manual) 8.0 H Eosinophils % (Manual) 0 Basophils % (Manual) 0 Metamyelocytes % 4.0 Myelocytes % 0 Promyelocytes % 0 Blast Cells % 0 Nucleated RBC % Not Reportable Seg Neutrophils # Man 9.8 H Band Neutrophils # 0.1 Lymphocytes # (Manual) 1.0 L Abs React Lymphs (Man) 0.0 Monocytes # (Manual) 1.0 H Eosinophils # (Manual) 0.0 Basophils # (Manual) 0.0 Metamyelocytes # 0.5 Myelocytes # 0.0 Promyelocytes # 0.0 Blast Cells # 0.0 WBC Morphology Not Reportable Hypersegmented Neuts Not Reportable Hyposegmented Neuts Not Reportable Hypogranular Neuts Not Reportable Smudge Cells Not Reportable Toxic Granulation Not Reportable Toxic Vacuolation Not Reportable Dohle Bodies Not Reportable Pelger-Huet Anomaly Not Reportable Burton Rods Not Reportable Platelet Estimate Consistent w auto Clumped Platelets Not Reportable Plt Clumps, EDTA Not Reportable Large Platelets Not Reportable Giant Platelets Not Reportable Platelet Satelliting Not Reportable Plt Morphology Comment Not Reportable RBC Morphology Not Reportable Dimorphic RBCs Not Reportable Polychromasia Not Reportable Hypochromasia Few Poikilocytosis Not Reportable Anisocytosis Few Microcytosis Not Reportable Macrocytosis Not Reportable Spherocytes Not Reportable Pappenheimer Bodies Not Reportable Sickle Cells Not Reportable Target Cells Rare Tear Drop Cells Not Reportable Ovalocytes Not Reportable Helmet Cells Not Reportable Weber-Schofield Bodies Not Reportable [place] Rings Not Reportable [place] Cells Not Reportable Bite Cells Not Reportable Crenated Cell Not Reportable Elliptocytes Rare Acanthocytes (Spur) Not Reportable Rouleaux Not Reportable Hemoglobin C Crystals Not Reportable Schistocytes Not Reportable Malaria parasites Not Reportable Dimitri Bodies Not Reportable Hem Pathologist Commnt No PT INR APTT Sodium 140 Potassium 4.0 Chloride 98.2 Carbon Dioxide 24 Anion Gap 22 BUN 45 H Creatinine 7.0 H Estimated GFR 7 BUN/Creatinine Ratio 6 Glucose 123 H POC Glucose Hemoglobin A1c < 4.0 L Calcium 8.7 Total Bilirubin 0.40 AST 19 ALT 11 Alkaline Phosphatase 84 Total Protein 5.9 L Albumin 2.6 L Albumin/Globulin Ratio 0.8 Blood Type Antibody Screen 04/18/19 07:41 WBC RBC Hgb Hct MCV MCH MCHC RDW Plt Count Add Manual Diff Total Counted Seg Neuts % (Manual) Band Neutrophils % Lymphocytes % (Manual) Reactive Lymphs % (Man) Monocytes % (Manual) Eosinophils % (Manual) Basophils % (Manual) Metamyelocytes % Myelocytes % Promyelocytes % Blast Cells % Nucleated RBC % Seg Neutrophils # Man Band Neutrophils # Lymphocytes # (Manual) Abs React Lymphs (Man) Monocytes # (Manual) Eosinophils # (Manual) Basophils # (Manual) Metamyelocytes # Myelocytes # Promyelocytes # Blast Cells # WBC Morphology Hypersegmented Neuts Hyposegmented Neuts Hypogranular Neuts Smudge Cells Toxic Granulation Toxic Vacuolation Dohle Bodies Pelger-Huet Anomaly Burton Rods Platelet Estimate Clumped Platelets Plt Clumps, EDTA Large Platelets Giant Platelets Platelet Satelliting Plt Morphology Comment RBC Morphology Dimorphic RBCs Polychromasia Hypochromasia Poikilocytosis Anisocytosis Microcytosis Macrocytosis Spherocytes Pappenheimer Bodies Sickle Cells Target Cells Tear Drop Cells Ovalocytes Helmet Cells Weber-Schofield Bodies [place] Cells Bite Cells Crenated Cell Elliptocytes Acanthocytes (Spur) Rouleaux Hemoglobin C Crystals Schistocytes Malaria parasites Dimitri Bodies Hem Pathologist Commnt PT INR APTT Sodium Potassium Chloride Carbon Dioxide Anion Gap BUN Creatinine Estimated GFR BUN/Creatinine Ratio Glucose POC Glucose 115 H Hemoglobin A1c Calcium Total Bilirubin AST ALT Alkaline Phosphatase Total Protein Albumin Albumin/Globulin Ratio Blood Type Antibody Screen Assessment and Plan 1.recurrent GI bleed/BRBPR 2.acute on chronic anemia (recent bone marrow bx) 3.ESRD on HD -H/H 7.0/21.0-stable but trended down compared to previous -continue to monitor H/H and transfuse as needed -EGD in 2015 for dysphagia/odynophagia showed esophagitis -colonoscopy 09/[address] Frazier for anemia that showed diverticulosis, internal hemorrhoids, and mild irritation in rectum with bx results benign -bleeding scan 04/12/19 positive for bleeding in the midepigastrium -s/p repeat EGD 04/13/19 that showed: 1. Antral gastritis with a small clean based ulcer without bleeding. Biopsies obtained from the antrum and the body. Unclear if this explains for the positive bleeding scan or the acute drop in H/H. She may still had diverticular bleed which has now stopped. 2. Normal esophagus and duodenum exam. 3. No sites of active bleeding noted. -bx results negative for H pylori/malignancy -etiology-likely recurrent diverticular bleeding, that has now resolved -clinically, patient is stable with no active signs of bleeding this am -okay for clears today -transition Protonix drip to BID -avoid NSAIDs -if re-bleeds, recommend stat bleeding scan -consider repeat colonoscopy based on clinical course -will follow <NICKO NICK - Last Filed: 04/18/19 16:23> Medications and Allergies Active Meds: Active Medications Clonidine HCl (Catapres-Tts Patch) 0.3 mg TD [facility] Last Admin: 04/17/19 21:05 Dose: 0.3 mg Documented by: Hydromorphone HCl (Dilaudid) 0.5 mg IV Q3H PRN PRN Reason: Pain , Severe (7-10) Sodium Chloride (Nacl 0.9%) 100 mls @ 999 mls/hr IV BRIGIDA PRN PRN Reason: Hypotension Dextrose/Sodium Chloride (D5ns) 1,000 mls @ 42 mls/hr IV DIRECT [facility] Last Admin: 04/17/19 17:50 Dose: 75 mls/hr Documented by: Insulin Human Lispro (Humalog) 0 unit SUB-Q Q6HR [facility]; Protocol Last Admin: 04/18/19 09:07 Dose: Not Given Documented by: Metoclopramide HCl (Reglan) 10 mg IV Q6H PRN PRN Reason: Nausea And Vomiting Morphine Sulfate (Morphine) 2 mg IV Q4H PRN PRN Reason: Pain, Moderate (4-6) Ondansetron HCl (Zofran) 4 mg IV Q3H PRN PRN Reason: Nausea And Vomiting Pantoprazole Sodium (Protonix) 40 mg IV BID [facility] Sodium Chloride (Sodium Chloride Flush Syringe 10 Ml) 10 ml IV BID [facility] Last Admin: 04/17/19 21:07 Dose: 10 ml Documented by: Sodium Chloride (Sodium Chloride Flush Syringe 10 Ml) 10 ml IV PRN PRN PRN Reason: LINE FLUSH Exam - Constitutional Vital Signs: Temp Pulse Resp BP Pulse Ox 100.0 F H 119 H 18 118/51 100 04/18/19 13:29 04/18/19 13:29 04/18/19 13:29 04/18/19 13:29 04/18/19 13:29 - Labs CBC & Chem 7: 04/18/19 04:32 04/18/19 04:32 Lab Results: Laboratory Results - last 24 hr 0204/17/19 04/17/19 17:47 21:35 21:35 WBC RBC Hgb Hct MCV MCH MCHC RDW Plt Count Add Manual Diff Total Counted Seg Neuts % (Manual) Band Neutrophils % Lymphocytes % (Manual) Reactive Lymphs % (Man) Monocytes % (Manual) Eosinophils % (Manual) Basophils % (Manual) Metamyelocytes % Myelocytes % Promyelocytes % Blast Cells % Nucleated RBC % Seg Neutrophils # Man Band Neutrophils # Lymphocytes # (Manual) Abs React Lymphs (Man) Monocytes # (Manual) Eosinophils # (Manual) Basophils # (Manual) Metamyelocytes # Myelocytes # Promyelocytes # Blast Cells # WBC Morphology Hypersegmented Neuts Hyposegmented Neuts Hypogranular Neuts Smudge Cells Toxic Granulation Toxic Vacuolation Dohle Bodies Pelger-Huet Anomaly Burton Rods Platelet Estimate Clumped Platelets Plt Clumps, EDTA Large Platelets Giant Platelets Platelet Satelliting Plt Morphology Comment RBC Morphology Dimorphic RBCs Polychromasia Hypochromasia Poikilocytosis Anisocytosis Microcytosis Macrocytosis Spherocytes Pappenheimer Bodies Sickle Cells Target Cells Tear Drop Cells Ovalocytes Helmet Cells Weber-Schofield Bodies [place] Cells Bite Cells Crenated Cell Elliptocytes Acanthocytes (Spur) Rouleaux Hemoglobin C Crystals Schistocytes Malaria parasites Dimitri Bodies Hem Pathologist Commnt PT 16.4 H INR 1.30 H APTT 48.5 H Sodium Potassium Chloride Carbon Dioxide Anion Gap BUN Creatinine Estimated GFR BUN/Creatinine Ratio Glucose POC Glucose 111 H Hemoglobin A1c Calcium Total Bilirubin AST ALT Alkaline Phosphatase Total Protein Albumin Albumin/Globulin Ratio Blood Type A POSITIVE Antibody Screen Negative 04/18/19 04/18/19 04/18/19 00:32 04:32 04:32 WBC 12.4 H RBC 2.27 L Hgb 7.0 L 7.0 L Hct 21.2 L 21.0 L MCV 92 MCH 31 MCHC 33 RDW 17.0 H Plt Count 297 Add Manual Diff Complete Total Counted 100 Seg Neuts % (Manual) 79.0 H Band Neutrophils % 1.0 Lymphocytes % (Manual) 8.0 L Reactive Lymphs % (Man) 0 Monocytes % (Manual) 8.0 H Eosinophils % (Manual) 0 Basophils % (Manual) 0 Metamyelocytes % 4.0 Myelocytes % 0 Promyelocytes % 0 Blast Cells % 0 Nucleated RBC % Not Reportable Seg Neutrophils # Man 9.8 H Band Neutrophils # 0.1 Lymphocytes # (Manual) 1.0 L Abs React Lymphs (Man) 0.0 Monocytes # (Manual) 1.0 H Eosinophils # (Manual) 0.0 Basophils # (Manual) 0.0 Metamyelocytes # 0.5 Myelocytes # 0.0 Promyelocytes # 0.0 Blast Cells # 0.0 WBC Morphology Not Reportable Hypersegmented Neuts Not Reportable Hyposegmented Neuts Not Reportable Hypogranular Neuts Not Reportable Smudge Cells Not Reportable Toxic Granulation Not Reportable Toxic Vacuolation Not Reportable Dohle Bodies Not Reportable Pelger-Huet Anomaly Not Reportable Burton Rods Not Reportable Platelet Estimate Consistent w auto Clumped Platelets Not Reportable Plt Clumps, EDTA Not Reportable Large Platelets Not Reportable Giant Platelets Not Reportable Platelet Satelliting Not Reportable Plt Morphology Comment Not Reportable RBC Morphology Not Reportable Dimorphic RBCs Not Reportable Polychromasia Not Reportable Hypochromasia Few Poikilocytosis Not Reportable Anisocytosis Few Microcytosis Not Reportable Macrocytosis Not Reportable Spherocytes Not Reportable Pappenheimer Bodies Not Reportable Sickle Cells Not Reportable Target Cells Rare Tear Drop Cells Not Reportable Ovalocytes Not Reportable Helmet Cells Not Reportable Weber-Schofield Bodies Not Reportable [place] Rings Not Reportable Hemant Cells Not Reportable Bite Cells Not Reportable Crenated Cell Not Reportable Elliptocytes Rare Acanthocytes (Spur) Not Reportable Rouleaux Not Reportable Hemoglobin C Crystals Not Reportable Schistocytes Not Reportable Malaria parasites Not Reportable Dimitri Bodies Not Reportable Hem Pathologist Commnt No PT INR APTT Sodium 140 Potassium 4.0 Chloride 98.2 Carbon Dioxide 24 Anion Gap 22 BUN 45 H Creatinine 7.0 H Estimated GFR 7 BUN/Creatinine Ratio 6 Glucose 123 H POC Glucose Hemoglobin A1c Calcium 8.7 Total Bilirubin 0.40 AST 19 ALT 11 Alkaline Phosphatase 84 Total Protein 5.9 L Albumin 2.6 L Albumin/Globulin Ratio 0.8 Blood Type Antibody Screen 04/18/19 04/18/19 04/18/19 04:32 07:41 16:16 WBC RBC Hgb Hct MCV MCH MCHC RDW Plt Count Add Manual Diff Total Counted Seg Neuts % (Manual) Band Neutrophils % Lymphocytes % (Manual) Reactive Lymphs % (Man) Monocytes % (Manual) Eosinophils % (Manual) Basophils % (Manual) Metamyelocytes % Myelocytes % Promyelocytes % Blast Cells % Nucleated RBC % Seg Neutrophils # Man Band Neutrophils # Lymphocytes # (Manual) Abs React Lymphs (Man) Monocytes # (Manual) Eosinophils # (Manual) Basophils # (Manual) Metamyelocytes # Myelocytes # Promyelocytes # Blast Cells # WBC Morphology Hypersegmented Neuts Hyposegmented Neuts Hypogranular Neuts Smudge Cells Toxic Granulation Toxic Vacuolation Dohle Bodies Pelger-Huet Anomaly Burton Rods Platelet Estimate Clumped Platelets Plt Clumps, EDTA Large Platelets Giant Platelets Platelet Satelliting Plt Morphology Comment RBC Morphology Dimorphic RBCs Polychromasia Hypochromasia Poikilocytosis Anisocytosis Microcytosis Macrocytosis Spherocytes Pappenheimer Bodies Sickle Cells Target Cells Tear Drop Cells Ovalocytes Helmet Cells Weber-Schofield Bodies [place] Cells Bite Cells Crenated Cell Elliptocytes Acanthocytes (Spur) Rouleaux Hemoglobin C Crystals Schistocytes Malaria parasites Dimitri Bodies Hem Pathologist Commnt PT INR APTT Sodium Potassium Chloride Carbon Dioxide Anion Gap BUN Creatinine Estimated GFR BUN/Creatinine Ratio Glucose POC Glucose 115 H 153 H Hemoglobin A1c < 4.0 L Calcium Total Bilirubin AST ALT Alkaline Phosphatase Total Protein Albumin Albumin/Globulin Ratio Blood Type Antibody Screen Assessment and Plan Patient seen and examined; agree with note above. chronic anemia, recent recurrent bleeding with h/o diverticulosis and hemorrhoids. no further bleeding today. if bleeding returns, then will likely need colonoscopy if pt agreeable. rest as above.
[2019-04-18] MEDS ORDERED: SODIUM CHLORIDE*PRIMING MACHINE ONLY FOR DIALYSIS MC ONE (12:49)
[2019-04-18] MEDS: D5W/0.9% NACL 1,000 ML IV SCH (16:24)
--- NOTE | 2019-04-18 16:59 | Progress Note ---
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 ESRD on HD HTN Hx of CHF DM Type 2 on insulin Plan: - S/p HD today for UF and clearance, UF removed 1500 ml - Assess need for HD on daily basis - Epogen dosing for anemia management - Pt ordered to receive 1 unit of pRBCs today - GI consulted, on protonix, will likely need colonoscopy if bleeding returns, f/u recs - Renally dose meds - This pt undergoes outpatient HD at [facility] - Renal plan d/w Dr Mauro Subjective Date of service: 04/18/19 Interval history: Pt seen in bed, denies shortness of breath, states HD went well today. Pt states she tolerated clear liquid diet, no nausea or vomiting. Daughter at bedside Objective - Vital Signs Vital signs: Vital Signs - 12hr 04/18/19 04/18/19 04/18/19 07:32 08:15 08:27 Temperature 99.5 F 98.9 F Pulse Rate 108 H 106 H 97 H Respiratory 18 18 Rate Blood Pressure 165/71 162/70 165/72 O2 Sat by Pulse 95 Oximetry 04/18/19 04/18/19 04/18/19 08:30 08:45 09:00 Temperature Pulse Rate 94 H 102 H 107 H Respiratory Rate Blood Pressure 166/78 161/64 178/75 O2 Sat by Pulse Oximetry 04/18/19 04/18/19 04/18/19 09:15 09:30 09:45 Temperature Pulse Rate 111 H 115 H 118 H Respiratory Rate Blood Pressure 174/77 159/87 148/61 O2 Sat by Pulse Oximetry 04/18/19 04/18/19 04/18/19 10:00 10:15 10:30 Temperature Pulse Rate 117 H 121 H 120 H Respiratory Rate Blood Pressure 157/69 138/55 139/55 O2 Sat by Pulse Oximetry 04/18/19 04/18/19 04/18/19 10:45 11:00 11:15 Temperature Pulse Rate 117 H 120 H 123 H Respiratory Rate Blood Pressure 151/63 149/63 145/60 O2 Sat by Pulse Oximetry 04/18/19 04/18/19 04/18/19 11:30 11:45 12:05 Temperature 98.9 F Pulse Rate 121 H 120 H 117 H Respiratory 18 Rate Blood Pressure 150/66 144/63 142/60 O2 Sat by Pulse Oximetry 04/18/19 13:29 Temperature 100.0 F H Pulse Rate 119 H Respiratory 18 Rate Blood Pressure 118/51 O2 Sat by Pulse 100 Oximetry - General Appearance General appearance: well-developed EENT: ATNC Neck: no JVD Respiratory: Present: Clear to Ascultation Cardiology: regular, S1S2, other (ACCESS: Left AVF + thrill and bruit noted) Gastrointestinal: normoactive bowel sounds Integumentary: warm and dry Neurologic: other (awake, alert, follows simple commands) Musculoskeletal: other (trace edema to BLE) Psychiatric: cooperative - Lab 04/18/19 04:32 04/18/19 04:32 Most recent lab results Calcium 8.7 mg/dL (8.4-10.2) 04/18/19 04:32 Medications & Allergies - Medications Allergies/Adverse Reactions: Allergies iodine Allergy (Verified 04/17/19 11:03) Unknown morphine Allergy (Verified 04/17/19 11:03) Unknown Penicillins Allergy (Verified 04/17/19 11:03) Vomiting Sulfa (Sulfonamide Antibiotics) Allergy (Verified 04/17/19 11:03) Vomiting Home Medications: Home Medications Medication Instructions Recorded Confirmed Last Taken Type Acetaminophen [Acetaminophen TAB] 500 mg PO TID 04/12/19 04/17/19 Unknown History AtorvaSTATin [Lipitor] 40 mg PO QHS 04/12/19 04/17/19 Unknown History Cyclobenzaprine [Flexeril 10 MG 10 mg PO TID PRN 04/12/19 04/17/19 Unknown History TAB] Divalproex ER [Depakote ER] 250 mg PO BID 04/12/19 04/17/19 Unknown History Doxazosin Mesylate 8 mg PO BID 04/12/19 04/17/19 Unknown History Folic Acid/Vit B Complex and C 800 mg PO QDAY 04/12/19 04/17/19 Unknown History [Dialyvite 800 Chewable Wafer] Furosemide [Lasix TAB] 40 mg PO QDAY 04/12/19 04/17/19 Unknown History Insulin Aspart (Nf) [NovoLOG 100 7 units SUB-Q TID 04/12/19 04/17/19 Unknown History UNITS/ML VIAL] Insulin Glargine [Lantus VIAL] 10 unit SUB-Q QHS 04/12/19 04/17/19 Unknown History Losartan [Cozaar] 50 mg PO BID 04/12/19 04/17/19 Unknown History OLANzapine [Zyprexa] 10 mg PO DAILY 04/12/19 04/17/19 Unknown History Pregabalin 25 mg PO QDAY 04/12/19 04/17/19 Unknown History Metoprolol [Lopressor TAB] 50 mg PO BID #60 tablet 04/14/19 04/17/19 Unknown Rx Pantoprazole [Protonix TAB] 40 mg PO BID #60 tablet 04/14/19 04/17/19 Unknown Rx Active Medications: Generic Name Dose Route Start Last Admin Trade Name Freq PRN Reason Stop Dose Admin Clonidine HCl 0.3 mg 04/17/19 19:00 04/17/19 21:05 Catapres-Tts Patch TD 0.3 mg Temple THAD Administration Hydromorphone HCl 0.5 mg 04/17/19 17:02 Dilaudid IV Q3H PRN Pain , Severe (7-10) Sodium Chloride 100 mls @ 999 mls/hr 04/17/19 15:20 Nacl 0.9% IV BRIGIDA PRN Hypotension Dextrose/Sodium Chloride 1,000 mls @ 42 mls/hr 04/17/19 18:00 04/18/19 16:24 D5ns IV 75 mls/hr DIRECT THAD Administration Insulin Human Lispro 0 unit 04/17/19 19:00 04/18/19 12:00 Humalog SUB-Q Not Given Q6HR THAD Protocol Metoclopramide HCl 10 mg 04/17/19 17:02 Reglan IV Q6H PRN Nausea And Vomiting Morphine Sulfate 2 mg 04/17/19 17:02 Morphine IV Q4H PRN Pain, Moderate (4-6) Ondansetron HCl 4 mg 04/17/19 17:02 Zofran IV Q3H PRN Nausea And Vomiting Pantoprazole Sodium 40 mg 04/18/19 22:00 Protonix IV BID THAD Sodium Chloride 10 ml 04/17/19 22:00 04/18/19 16:25 Sodium Chloride Flush Syringe 10 Ml IV 10 ml BID THAD Administration Sodium Chloride 10 ml 04/17/19 17:02 Sodium Chloride Flush Syringe 10 Ml IV PRN PRN LINE FLUSH
[2019-04-18] MEDS ORDERED: SODIUM CHLORIDE 0.9% 500 ML 500 ML IV ONE (19:00)
[2019-04-18] MEDS: PANTOPRAZOLE 40 MG INJ IV SCH (21:24)
[2019-04-19] MEDS: INSULIN LISPRO 100 UNIT/ML SUB-Q SCH ×2 (00:55→12:00)
[2019-04-19 06:03] LABS: Hematocrit 20.4 % (30.3-42.9); Hemoglobin 6.5 gm/dl (10.1-14.3); Mean Corpuscular HGB Conc 32 % (30-34); Mean Corpuscular Volume 94 fl (79-97); Platelet Count 305 K/mm3 (140-440); Red Blood Count 2.18 M/mm3 (3.65-5.03); Red Cell Distribution Width 17.9 % (13.2-15.2)
[2019-04-19 06:22] LABS: Calcium 8.3 mg/dL (8.4-10.2)
[2019-04-19] MEDS ORDERED: SODIUM CHLORIDE 0.9% 500 ML 500 ML IV ONE (06:52)
--- NOTE | 2019-04-19 07:14 | Progress Note ---
Assessment and Plan Assessment and plan: Patient is a 74-year-old woman with a history of HTN, CHF (unknown EF), ESRD on HD (M, W, F), TIA, recent clean base PUD without bleeding and diverticulosis who presents to [facility] ED for bright red blood per rectum and hypotension. She was recently discharged from the hospital after an upper endoscopy showed a clean- based ulcer with antral gastritis without bleeding and was to follow with GI for pathology. Acute on chronic GI blood loss anemia, [address] Perez, but [employer] EMR rejected order, reason to be investigated, now h/h drop lower: transfuse 1 unit of PRBC, GI to follow up BRBPR, most likely Diverticular bleed: GI following Hypotension, now hypertensive: continue clonidine patch, stopped IVF ordered by Dr. Mahoney because h/o chf, esrd, elevated bp End-stage renal disease: on Hemodialysis, Nephrology following Morbid obesity, bmi 38: dietary changes Diabetes mellitus type 2, with a1c >4, resolved; stop SSI H/O congestive heart failure systolic presumed SIRS without organ dysfunction, poa, Leukocytosis likely reactive-improving Diverticulosis: GI deciding about repeat c-scopy DVT: scd only due to gib full code Disposition: continue inpatient until anemia stabilizes History Interval history: Patient was seen and examined. Follow-up on current diagnosis of BRBPR. Overnight uneventful as no events directly reported to me. Patient denies any chest pain, shortness breath, nausea/vomiting or severe headaches. Imaging, nursing note, chart, labs and old chart reviewed. Discussed with patient. Hospitalist Physical - Physical exam Narrative exam: Gen: WDWN, NAD, Awake, Alert, Orientated HEENT: NCAT, EOMI, PERRL, OP Clear Neck: supple, no adenopathy, no thyromegaly, no JVD CVS/Heart: RRR, normal S1S2, pulses present bilaterally Chest/Lungs: CTA B, Symmetrical chest expansion, good air entry bilaterally GI/Abdomen: soft, NTND, good bowel sounds, no guarding or rebound /Bladder: no suprapubic tenderness, no CVA or paraspinal tenderness Extermity/Skin: no c/c/e, no obvious rash MSK: FROM x 4 - Constitutional Vitals: Temp Pulse Resp BP Pulse Ox 99.5 F 107 H 20 181/78 93 04/19/19 02:23 04/19/19 02:23 04/19/19 02:23 04/19/19 02:23 04/19/19 02:23 General appearance: Present: no acute distress, well-nourished Results - Labs CBC & Chem 7: 04/19/19 05:45 04/19/19 05:45 Labs: Laboratory Last Values WBC 11.4 K/mm3 (4.5-11.0) H 04/19/19 05:45 RBC 2.18 M/mm3 (3.65-5.03) L 04/19/19 05:45 Hgb 6.5 gm/dl (10.1-14.3) L 04/19/19 05:45 Hct 20.4 % (30.3-42.9) L 04/19/19 05:45 MCV 94 fl (79-97) 04/19/19 05:45 MCH 30 pg (28-32) 04/19/19 05:45 MCHC 32 % (30-34) 04/19/19 05:45 RDW 17.9 % (13.2-15.2) H 04/19/19 05:45 Plt Count 305 K/mm3 (140-440) 04/19/19 05:45 Add Manual Diff Complete 04/18/19 04:32 Total Counted 100 04/18/19 04:32 Seg Neuts % (Manual) 79.0 % (40.0-70.0) H 04/18/19 04:32 Band Neutrophils % 1.0 % 04/18/19 04:32 Lymphocytes % (Manual) 8.0 % (13.4-35.0) L 04/18/19 04:32 Reactive Lymphs % (Man) 0 % 04/18/19 04:32 Monocytes % (Manual) 8.0 % (0.0-7.3) H 04/18/19 04:32 Eosinophils % (Manual) 0 % (0.0-4.3) 04/18/19 04:32 Basophils % (Manual) 0 % (0.0-1.8) 04/18/19 04:32 Metamyelocytes % 4.0 % 04/18/19 04:32 Myelocytes % 0 % 04/18/19 04:32 Promyelocytes % 0 % 04/18/19 04:32 Blast Cells % 0 % 04/18/19 04:32 Nucleated RBC % Not Reportable 04/18/19 04:32 Seg Neutrophils # Man 9.8 K/mm3 (1.8-7.7) H 04/18/19 04:32 Band Neutrophils # 0.1 K/mm3 04/18/19 04:32 Lymphocytes # (Manual) 1.0 K/mm3 (1.2-5.4) L 04/18/19 04:32 Abs React Lymphs (Man) 0.0 K/mm3 04/18/19 04:32 Monocytes # (Manual) 1.0 K/mm3 (0.0-0.8) H 04/18/19 04:32 Eosinophils # (Manual) 0.0 K/mm3 (0.0-0.4) 04/18/19 04:32 Basophils # (Manual) 0.0 K/mm3 (0.0-0.1) 04/18/19 04:32 Metamyelocytes # 0.5 K/mm3 04/18/19 04:32 Myelocytes # 0.0 K/mm3 04/18/19 04:32 Promyelocytes # 0.0 K/mm3 04/18/19 04:32 Blast Cells # 0.0 K/mm3 04/18/19 04:32 WBC Morphology Not Reportable 04/18/19 04:32 Hypersegmented Neuts Not Reportable 04/18/19 04:32 Hyposegmented Neuts Not Reportable 04/18/19 04:32 Hypogranular Neuts Not Reportable 04/18/19 04:32 Smudge Cells Not Reportable 04/18/19 04:32 Toxic Granulation Not Reportable 04/18/19 04:32 Toxic Vacuolation Not Reportable 04/18/19 04:32 Dohle Bodies Not Reportable 04/18/19 04:32 Pelger-Huet Anomaly Not Reportable 04/18/19 04:32 [place] Rods Not Reportable 04/18/19 04:32 Platelet Estimate Consistent w auto 04/18/19 04:32 Clumped Platelets Not Reportable 04/18/19 04:32 Plt Clumps, EDTA Not Reportable 04/18/19 04:32 Large Platelets Not Reportable 04/18/19 04:32 Giant Platelets Not Reportable 04/18/19 04:32 Platelet Satelliting Not Reportable 04/18/19 04:32 Plt Morphology Comment Not Reportable 04/18/19 04:32 RBC Morphology Not Reportable 04/18/19 04:32 Dimorphic RBCs Not Reportable 04/18/19 04:32 Polychromasia Not Reportable 04/18/19 04:32 Hypochromasia Few 04/18/19 04:32 Poikilocytosis Not Reportable 04/18/19 04:32 Anisocytosis Few 04/18/19 04:32 Microcytosis Not Reportable 04/18/19 04:32 Macrocytosis Not Reportable 04/18/19 04:32 Spherocytes Not Reportable 04/18/19 04:32 Pappenheimer Bodies Not Reportable 04/18/19 04:32 Sickle Cells Not Reportable 04/18/19 04:32 Target Cells Rare 04/18/19 04:32 Tear Drop Cells Not Reportable 04/18/19 04:32 Ovalocytes Not Reportable 04/18/19 04:32 Helmet Cells Not Reportable 04/18/19 04:32 [place] Bodies Not Reportable 04/18/19 04:32 [place] Rings Not Reportable 04/18/19 04:32 [place] Cells Not Reportable 04/18/19 04:32 Bite Cells Not Reportable 04/18/19 04:32 Crenated Cell Not Reportable 04/18/19 04:32 Elliptocytes Rare 04/18/19 04:32 Acanthocytes (Spur) Not Reportable 04/18/19 04:32 Rouleaux Not Reportable 04/18/19 04:32 Hemoglobin C Crystals Not Reportable 04/18/19 04:32 Schistocytes Not Reportable 04/18/19 04:32 Malaria parasites Not Reportable 04/18/19 04:32 Dimitri Bodies Not Reportable 04/18/19 04:32 Hem Pathologist Commnt No 04/18/19 04:32 PT 16.4 Sec. (12.2-14.9) H 04/17/19 21:35 INR 1.30 (0.87-1.13) H 04/17/19 21:35 APTT 48.5 Sec. (24.2-36.6) H 04/17/19 21:35 Sodium 141 mmol/L (137-145) 04/19/19 05:45 Potassium 3.8 mmol/L (3.6-5.0) 04/19/19 05:45 Chloride 99.6 mmol/L (98-107) 04/19/19 05:45 Carbon Dioxide 26 mmol/L (22-30) 04/19/19 05:45 Anion Gap 19 mmol/L 04/19/19 05:45 BUN 21 mg/dL (7-17) H 04/19/19 05:45 Creatinine 3.8 mg/dL (0.7-1.2) H 04/19/19 05:45 Estimated GFR 14 ml/min 04/19/19 05:45 BUN/Creatinine Ratio 6 % 04/19/19 05:45 Glucose 145 mg/dL (65-100) H 04/19/19 05:45 POC Glucose 163 (70-105) H 04/19/19 00:00 Hemoglobin A1c < 4.0 % (4-6) L 04/18/19 04:32 Calcium 8.3 mg/dL (8.4-10.2) L 04/19/19 05:45 Total Bilirubin 0.40 mg/dL (0.1-1.2) 04/18/19 04:32 AST 19 units/L (5-40) 04/18/19 04:32 ALT 11 units/L (7-56) 04/18/19 04:32 Alkaline Phosphatase 84 units/L (35-129) 04/18/19 04:32 Total Protein 5.9 g/dL (6.3-8.2) L 04/18/19 04:32 Albumin 2.6 g/dL (3.9-5) L 04/18/19 04:32 Albumin/Globulin Ratio 0.8 % 04/18/19 04:32 Blood Type A POSITIVE 04/17/19 21:35 Antibody Screen Negative 04/17/19 21:35 Active Medications - Current Medications Current Medications: Generic Name Dose Route Start Last Admin Trade Name Freq PRN Reason Stop Dose Admin Clonidine HCl 0.3 mg 04/17/19 19:00 04/17/19 21:05 Catapres-Tts Patch TD 0.3 mg Temple THAD Administration Hydromorphone HCl 0.5 mg 04/17/19 17:02 Dilaudid IV Q3H PRN Pain , Severe (7-10) Sodium Chloride 100 mls @ 999 mls/hr 04/17/19 15:20 Nacl 0.9% IV BRIGIDA PRN Hypotension Dextrose/Sodium Chloride 1,000 mls @ 42 mls/hr 04/17/19 18:00 04/18/19 16:24 D5ns IV 75 mls/hr DIRECT THAD Administration Sodium Chloride 500 mls @ 0 mls/hr 04/19/19 07:12 Nacl 0.9% 500 Ml IV 04/19/19 07:13 ONCE ONE As Directed Insulin Human Lispro 0 unit 04/17/19 19:00 04/19/19 00:55 Humalog SUB-Q Not Given Q6HR THAD Protocol Metoclopramide HCl 10 mg 04/17/19 17:02 Reglan IV Q6H PRN Nausea And Vomiting Morphine Sulfate 2 mg 04/17/19 17:02 Morphine IV Q4H PRN Pain, Moderate (4-6) Ondansetron HCl 4 mg 04/17/19 17:02 Zofran IV Q3H PRN Nausea And Vomiting Pantoprazole Sodium 40 mg 04/18/19 22:00 04/18/19 21:24 Protonix IV 40 mg BID THAD Administration Sodium Chloride 10 ml 04/17/19 22:00 04/18/19 21:25 Sodium Chloride Flush Syringe 10 Ml IV 10 ml BID THAD Administration Sodium Chloride 10 ml 04/17/19 17:02 Sodium Chloride Flush Syringe 10 Ml IV PRN PRN LINE FLUSH Nutrition/Malnutrition Assess - Dietary Evaluation Nutrition/Malnutrition Findings: Nutrition Notes Start: 04/18/19 12:46 Freq: Status: Active Protocol: Document 04/18/19 12:46 LM (Rec: 04/18/19 12:47 LM [facility]-[id number]) Nutrition Notes Need for Assessment generated from: heel seat fitter machine Initial or Follow up Brief Note Subjective/Other Information RN screen for skin risk. No barrera score in chart and no documentation of wound Nutrition Intervention Revisit per MD consult or patient Sign Off request:
[2019-04-19] MEDS ORDERED: ONDANSETRON 4 MG/2 ML INJ IV PRN (07:30)
[2019-04-19] MEDS ORDERED: SODIUM CHLORIDE 0.9% 500 ML 500 ML IV SCH (07:30)
[2019-04-19] MEDS: PANTOPRAZOLE 40 MG INJ IV SCH ×2 (09:17→21:46)
[2019-04-19] MEDS: HYDROmorphone 1 MG/1 ML INJ IV PRN (09:18)
--- NOTE | 2019-04-19 11:00 | Gastroenterology Progress Note ---
Assessment and Plan 1.recurrent GI bleed/BRBPR 2.acute on chronic anemia (recent bone marrow bx) 3.ESRD on HD -H/H 6.5.4-trending down -continue to monitor H/H and transfuse as needed -EGD in 2015 for dysphagia/odynophagia showed esophagitis -colonoscopy 09/[address] Frazier for anemia that showed diverticulosis, internal hemorrhoids, and mild irritation in rectum with bx results benign -bleeding scan 04/12/19 positive for bleeding in the midepigastrium -s/p repeat EGD 04/13/19 that showed: 1. Antral gastritis with a small clean based ulcer without bleeding. Biopsies obtained from the antrum and the body. Unclear if this explains for the positive bleeding scan or the acute drop in H/H. She may still had diverticular bleed which has now stopped. 2. Normal esophagus and duodenum exam. 3. No sites of active bleeding noted. -bx results negative for H pylori/malignancy -etiology-likely recurrent diverticular bleeding -clinically, patient is currently HD stable with no active signs of bleeding this am, but with reports BMs x 2 overnight with bloody stool. -will schedule for repeat colonoscopy tomorrow (discussed plan of care with pt and daughter Ellen) -okay for clears today then NPO after MN -continue PPI -avoid NSAIDs -recommend stat bleeding scan for overt bleeding, if positive IR consult and also surgery consult -will follow Subjective Date of service: 04/19/19 Principal diagnosis: GI bleed Interval history: BM overnight x 2 with bloody stool per pt/family. No acute distress or active signs of bleeding this am. Objective - Constitutional Vitals: Temp Pulse Resp BP Pulse Ox 98.4 F 111 H 18 157/71 92 04/19/19 07:28 04/19/19 07:28 04/19/19 07:28 04/19/19 07:28 04/19/19 07:28 General appearance: no acute distress, obese - EENT Eyes: PERRL, EOM intact ENT: hearing intact - Respiratory Respiratory effort: normal - Cardiovascular Rhythm: other (tachycardia) - Gastrointestinal General gastrointestinal: Present: soft, non-tender, non-distended, normal bowel sounds, other (obese) - Neurologic Neurological: oriented to person, oriented to place - Labs CBC & Chem 7: 04/19/19 05:45 04/19/19 05:45 Labs: Laboratory Results - last 24 hr 04/17/19 04/17/19 04/17/19 13:25 21:35 21:35 WBC 20.3 H RBC 2.74 L Hgb 8.5 L Hct 25.4 L MCV 93 MCH 31 MCHC 33 RDW 17.8 H Plt Count 313 Add Manual Diff Complete Total Counted 100 Seg Neuts % (Manual) 91.0 H Band Neutrophils % 2.0 Lymphocytes % (Manual) 3.0 L Reactive Lymphs % (Man) 0 Monocytes % (Manual) 3.0 Eosinophils % (Manual) 0 Basophils % (Manual) 0 Metamyelocytes % 1.0 Myelocytes % 0 Promyelocytes % 0 Blast Cells % 0 Seg Neutrophils # Man 18.5 H Band Neutrophils # 0.4 Lymphocytes # (Manual) 0.6 L Abs React Lymphs (Man) 0.0 Monocytes # (Manual) 0.6 Eosinophils # (Manual) 0.0 Basophils # (Manual) 0.0 Metamyelocytes # 0.2 Myelocytes # 0.0 Promyelocytes # 0.0 Blast Cells # 0.0 Platelet Estimate Consistent w auto Polychromasia Few Hypochromasia Few Target Cells Few Hem Pathologist Commnt No PT 16.4 H INR 1.30 H APTT 48.5 H Sodium Potassium Chloride Carbon Dioxide Anion Gap BUN Creatinine Estimated GFR BUN/Creatinine Ratio Glucose POC Glucose Calcium Blood Type A POSITIVE Antibody Screen Negative Crossmatch See Detail 04/18/19 04/19/19 04/19/19 16:16 00:00 05:45 WBC 11.4 H RBC 2.18 L Hgb 6.5 L Hct 20.4 L MCV 94 MCH 30 MCHC 32 RDW 17.9 H Plt Count 305 Add Manual Diff Total Counted Seg Neuts % (Manual) Band Neutrophils % Lymphocytes % (Manual) Reactive Lymphs % (Man) Monocytes % (Manual) Eosinophils % (Manual) Basophils % (Manual) Metamyelocytes % Myelocytes % Promyelocytes % Blast Cells % Seg Neutrophils # Man Band Neutrophils # Lymphocytes # (Manual) Abs React Lymphs (Man) Monocytes # (Manual) Eosinophils # (Manual) Basophils # (Manual) Metamyelocytes # Myelocytes # Promyelocytes # Blast Cells # Platelet Estimate Polychromasia Hypochromasia Target Cells Hem Pathologist Commnt PT INR APTT Sodium Potassium Chloride Carbon Dioxide Anion Gap BUN Creatinine Estimated GFR BUN/Creatinine Ratio Glucose POC Glucose 153 H 163 H Calcium Blood Type Antibody Screen Crossmatch 04/19/19 05:45 WBC RBC Hgb Hct MCV MCH MCHC RDW Plt Count Add Manual Diff Total Counted Seg Neuts % (Manual) Band Neutrophils % Lymphocytes % (Manual) Reactive Lymphs % (Man) Monocytes % (Manual) Eosinophils % (Manual) Basophils % (Manual) Metamyelocytes % Myelocytes % Promyelocytes % Blast Cells % Seg Neutrophils # Man Band Neutrophils # Lymphocytes # (Manual) Abs React Lymphs (Man) Monocytes # (Manual) Eosinophils # (Manual) Basophils # (Manual) Metamyelocytes # Myelocytes # Promyelocytes # Blast Cells # Platelet Estimate Polychromasia Hypochromasia Target Cells Hem Pathologist Commnt PT INR APTT Sodium 141 Potassium 3.8 Chloride 99.6 Carbon Dioxide 26 Anion Gap 19 BUN 21 H Creatinine 3.8 H Estimated GFR 14 BUN/Creatinine Ratio 6 Glucose 145 H POC Glucose Calcium 8.3 L Blood Type Antibody Screen Crossmatch
[2019-04-19] MEDS ORDERED: POLYETHYLENE GLYCOL/ELECT SOLN 4000 ML PO SCH (11:01)
--- NOTE | 2019-04-19 13:41 | Progress Note ---
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 ESRD on HD HTN Hx of CHF DM Type 2 on insulin Plan: - no indication for HD today - Assess need for HD on daily basis - Epogen dosing for anemia management - Pt ordered to receive 1 unit of pRBCs today - GI consulted, on protonix - Renally dose meds - This pt undergoes outpatient HD at [facility] MW Leroy Mccain MD [phone] Subjective Date of service: 04/19/19 Principal diagnosis: GI bleed Interval history: tolerated HD yesterday Objective - Vital Signs Vital signs: Vital Signs - 12hr 04/19/19 04/19/19 04/19/19 02:23 07:28 10:00 Temperature 99.5 F 98.4 F Pulse Rate 107 H 111 H Respiratory 20 18 Rate Blood Pressure 181/78 157/71 O2 Sat by Pulse 93 92 99 Oximetry 04/19/19 04/19/19 04/19/19 12:22 12:45 12:53 Temperature 98.5 F 99.3 F Pulse Rate 112 H 115 H 104 H Respiratory 20 20 Rate Blood Pressure 125/53 150/54 O2 Sat by Pulse 96 97 Oximetry 04/19/19 04/19/19 04/19/19 12:54 13:00 13:30 Temperature 99.0 F Pulse Rate 103 H 107 H Respiratory 20 20 20 Rate Blood Pressure 150/54 151/59 161/65 O2 Sat by Pulse 94 95 Oximetry - Lab 04/19/19 05:45 04/19/19 05:45 Most recent lab results Calcium 8.3 mg/dL (8.4-10.2) L 04/19/19 05:45 Medications & Allergies - Medications Allergies/Adverse Reactions: Allergies iodine Allergy (Verified 04/17/19 11:03) Unknown morphine Allergy (Verified 04/17/19 11:03) Unknown Penicillins Allergy (Verified 04/17/19 11:03) Vomiting Sulfa (Sulfonamide Antibiotics) Allergy (Verified 04/17/19 11:03) Vomiting Home Medications: Home Medications Medication Instructions Recorded Confirmed Last Taken Type Acetaminophen [Acetaminophen TAB] 500 mg PO TID 04/12/19 04/17/19 Unknown History AtorvaSTATin [Lipitor] 40 mg PO QHS 04/12/19 04/17/19 Unknown History Cyclobenzaprine [Flexeril 10 MG 10 mg PO TID PRN 04/12/19 04/17/19 Unknown History TAB] Divalproex ER [Depakote ER] 250 mg PO BID 04/12/19 04/17/19 Unknown History Doxazosin Mesylate 8 mg PO BID 04/12/19 04/17/19 Unknown History Folic Acid/Vit B Complex and C 800 mg PO QDAY 04/12/19 04/17/19 Unknown History [Dialyvite 800 Chewable Wafer] Furosemide [Lasix TAB] 40 mg PO QDAY 04/12/19 04/17/19 Unknown History Insulin Aspart (Nf) [NovoLOG 100 7 units SUB-Q TID 04/12/19 04/17/19 Unknown History UNITS/ML VIAL] Insulin Glargine [Lantus VIAL] 10 unit SUB-Q QHS 04/12/19 04/17/19 Unknown History Losartan [Cozaar] 50 mg PO BID 04/12/19 04/17/19 Unknown History OLANzapine [Zyprexa] 10 mg PO DAILY 04/12/19 04/17/19 Unknown History Pregabalin 25 mg PO QDAY 04/12/19 04/17/19 Unknown History Metoprolol [Lopressor TAB] 50 mg PO BID #60 tablet 04/14/19 04/17/19 Unknown Rx Pantoprazole [Protonix TAB] 40 mg PO BID #60 tablet 04/14/19 04/17/19 Unknown Rx Active Medications: Generic Name Dose Route Start Last Admin Trade Name Freq PRN Reason Stop Dose Admin Clonidine HCl 0.3 mg 04/17/19 19:00 04/17/19 21:05 Catapres-Tts Patch TD 0.3 mg [place] THAD Administration Hydromorphone HCl 0.5 mg 04/17/19 17:02 04/19/19 09:18 Dilaudid IV 0.5 mg Q3H PRN Administration Pain , Severe (7-10) Sodium Chloride 100 mls @ 999 mls/hr 04/17/19 15:20 Nacl 0.9% IV BRIGIDA PRN Hypotension Sodium Chloride 500 mls @ 0 mls/hr 04/19/19 07:30 04/19/19 12:45 Nacl 0.9% 500 Ml IV 04/19/19 18:00 42 mls/hr ONCE THAD Administration As Directed Metoclopramide HCl 10 mg 04/17/19 17:02 Reglan IV Q6H PRN Nausea And Vomiting Ondansetron HCl 4 mg 04/19/19 07:30 Zofran IV Q4H PRN Nausea And Vomiting Pantoprazole Sodium 40 mg 04/18/19 22:00 04/19/19 09:17 Protonix IV 40 mg BID THAD Administration Polyethylene Glycol/Electrolytes 4,000 ml 04/19/19 11:01 Golytely PO 04/19/19 18:00 ONCE THAD Sodium Chloride 10 ml 04/17/19 22:00 04/19/19 09:18 Sodium Chloride Flush Syringe 10 Ml IV 10 ml BID THAD Administration Sodium Chloride 10 ml 04/17/19 17:02 Sodium Chloride Flush Syringe 10 Ml IV PRN PRN LINE FLUSH
[2019-04-19] MEDS: DIVALPROEX ER 250 MG TAB PO SCH (21:45)
[2019-04-20 04:46] LABS: Hematocrit 22.3 % (30.3-42.9); Hemoglobin 7.5 gm/dl (10.1-14.3); Mean Corpuscular HGB Conc 34 % (30-34); Mean Corpuscular Volume 90 fl (79-97); Platelet Count 320 K/mm3 (140-440); Red Blood Count 2.48 M/mm3 (3.65-5.03); Red Cell Distribution Width 17.6 % (13.2-15.2)
[2019-04-20 04:58] LABS: INR 1.3 (0.87-1.13)
[2019-04-20 05:11] LABS: Calcium 8.6 mg/dL (8.4-10.2)
--- NOTE | 2019-04-20 07:54 | Progress Note ---
Assessment and Plan Assessment and plan: Patient is a 74-year-old woman with a history of HTN, CHF (unknown EF), ESRD on HD (M, W, F), TIA, recent clean base PUD without bleeding and diverticulosis who presents to [facility] ED for bright red blood per rectum and hypotension. She was recently discharged from the hospital after an upper endoscopy showed a clean- based ulcer with antral gastritis without bleeding and was to follow with GI for pathology. Acute on chronic GI blood loss anemia, [address] Perez, but [facility] EMR rejected order, reason to be investigated, now h/h drop lower: transfused 1 unit of PRBC on 04/19/19, GI to follow up BRBPR, most likely Diverticular bleed: GI following Hypotension, now hypertensive: continue clonidine patch, stopped IVF ordered by Dr. Mahoney because h/o chf, esrd, elevated bp End-stage renal disease: on Hemodialysis, Nephrology following Morbid obesity, bmi 38: dietary changes Diabetes mellitus type 2, with a1c <4, resolved; stop SSI H/O congestive heart failure systolic presumed SIRS without organ dysfunction, poa, Leukocytosis likely reactive-improving Diverticulosis: GI deciding about repeat c-scopy DVT: scd only due to gib full code Disposition: continue inpatient until anemia stabilizes C-scopy today then home tomorrow if h/h above 7 History Interval history: Patient was seen and examined. Follow-up on current diagnosis of BRBPR. Overnight uneventful as no events directly reported to me. Patient denies any chest pain, shortness breath, nausea/vomiting or severe headaches. Imaging, nursing note, chart, labs and old chart reviewed. Discussed with patient. Hospitalist Physical - Physical exam Narrative exam: Gen: WDWN, NAD, Awake, Alert, Orientated HEENT: NCAT, EOMI, PERRL, OP Clear Neck: supple, no adenopathy, no thyromegaly, no JVD CVS/Heart: RRR, normal S1S2, pulses present bilaterally Chest/Lungs: CTA B, Symmetrical chest expansion, good air entry bilaterally GI/Abdomen: soft, NTND, good bowel sounds, no guarding or rebound /Bladder: no suprapubic tenderness, no CVA or paraspinal tenderness Extermity/Skin: no c/c/e, no obvious rash MSK: FROM x 4 - Constitutional Vitals: Temp Pulse Resp BP Pulse Ox 98.8 F 111 H 20 153/77 95 04/20/19 01:56 04/20/19 01:56 04/20/19 02:00 04/20/19 01:56 04/20/19 01:56 General appearance: Present: no acute distress, well-nourished Results - Labs CBC & Chem 7: 04/20/19 03:55 04/20/19 03:55 Labs: Laboratory Last Values WBC 11.2 K/mm3 (4.5-11.0) H 04/20/19 03:55 RBC 2.48 M/mm3 (3.65-5.03) L 04/20/19 03:55 Hgb 7.5 gm/dl (10.1-14.3) L 04/20/19 03:55 Hct 22.3 % (30.3-42.9) L 04/20/19 03:55 MCV 90 fl (79-97) 04/20/19 03:55 MCH 30 pg (28-32) 04/20/19 03:55 MCHC 34 % (30-34) 04/20/19 03:55 RDW 17.6 % (13.2-15.2) H 04/20/19 03:55 Plt Count 320 K/mm3 (140-440) 04/20/19 03:55 Add Manual Diff Complete 04/18/19 04:32 Total Counted 100 04/18/19 04:32 Seg Neuts % (Manual) 79.0 % (40.0-70.0) H 04/18/19 04:32 Band Neutrophils % 1.0 % 04/18/19 04:32 Lymphocytes % (Manual) 8.0 % (13.4-35.0) L 04/18/19 04:32 Reactive Lymphs % (Man) 0 % 04/18/19 04:32 Monocytes % (Manual) 8.0 % (0.0-7.3) H 04/18/19 04:32 Eosinophils % (Manual) 0 % (0.0-4.3) 04/18/19 04:32 Basophils % (Manual) 0 % (0.0-1.8) 04/18/19 04:32 Metamyelocytes % 4.0 % 04/18/19 04:32 Myelocytes % 0 % 04/18/19 04:32 Promyelocytes % 0 % 04/18/19 04:32 Blast Cells % 0 % 04/18/19 04:32 Nucleated RBC % Not Reportable 04/18/19 04:32 Seg Neutrophils # Man 9.8 K/mm3 (1.8-7.7) H 04/18/19 04:32 Band Neutrophils # 0.1 K/mm3 04/18/19 04:32 Lymphocytes # (Manual) 1.0 K/mm3 (1.2-5.4) L 04/18/19 04:32 Abs React Lymphs (Man) 0.0 K/mm3 04/18/19 04:32 Monocytes # (Manual) 1.0 K/mm3 (0.0-0.8) H 04/18/19 04:32 Eosinophils # (Manual) 0.0 K/mm3 (0.0-0.4) 04/18/19 04:32 Basophils # (Manual) 0.0 K/mm3 (0.0-0.1) 04/18/19 04:32 Metamyelocytes # 0.5 K/mm3 04/18/19 04:32 Myelocytes # 0.0 K/mm3 04/18/19 04:32 Promyelocytes # 0.0 K/mm3 04/18/19 04:32 Blast Cells # 0.0 K/mm3 04/18/19 04:32 WBC Morphology Not Reportable 04/18/19 04:32 Hypersegmented Neuts Not Reportable 04/18/19 04:32 Hyposegmented Neuts Not Reportable 04/18/19 04:32 Hypogranular Neuts Not Reportable 04/18/19 04:32 Smudge Cells Not Reportable 04/18/19 04:32 Toxic Granulation Not Reportable 04/18/19 04:32 Toxic Vacuolation Not Reportable 04/18/19 04:32 Dohle Bodies Not Reportable 04/18/19 04:32 Pelger-Huet Anomaly Not Reportable 04/18/19 04:32 Burton Rods Not Reportable 04/18/19 04:32 Platelet Estimate Consistent w auto 04/18/19 04:32 Clumped Platelets Not Reportable 04/18/19 04:32 Plt Clumps, EDTA Not Reportable 04/18/19 04:32 Large Platelets Not Reportable 04/18/19 04:32 Giant Platelets Not Reportable 04/18/19 04:32 Platelet Satelliting Not Reportable 04/18/19 04:32 Plt Morphology Comment Not Reportable 04/18/19 04:32 RBC Morphology Not Reportable 04/18/19 04:32 Dimorphic RBCs Not Reportable 04/18/19 04:32 Polychromasia Not Reportable 04/18/19 04:32 Hypochromasia Few 04/18/19 04:32 Poikilocytosis Not Reportable 04/18/19 04:32 Anisocytosis Few 04/18/19 04:32 Microcytosis Not Reportable 04/18/19 04:32 Macrocytosis Not Reportable 04/18/19 04:32 Spherocytes Not Reportable 04/18/19 04:32 Pappenheimer Bodies Not Reportable 04/18/19 04:32 Sickle Cells Not Reportable 04/18/19 04:32 Target Cells Rare 04/18/19 04:32 Tear Drop Cells Not Reportable 04/18/19 04:32 Ovalocytes Not Reportable 04/18/19 04:32 Helmet Cells Not Reportable 04/18/19 04:32 Weber-Wing Bodies Not Reportable 04/18/19 04:32 [place] Rings Not Reportable 04/18/19 04:32 Hemant Cells Not Reportable 04/18/19 04:32 Bite Cells Not Reportable 04/18/19 04:32 Crenated Cell Not Reportable 04/18/19 04:32 Elliptocytes Rare 04/18/19 04:32 Acanthocytes (Spur) Not Reportable 04/18/19 04:32 Rouleaux Not Reportable 04/18/19 04:32 Hemoglobin C Crystals Not Reportable 04/18/19 04:32 Schistocytes Not Reportable 04/18/19 04:32 Malaria parasites Not Reportable 04/18/19 04:32 Dimitri Bodies Not Reportable 04/18/19 04:32 Hem Pathologist Commnt No 04/18/19 04:32 PT 16.4 Sec. (12.2-14.9) H 04/20/19 03:55 INR 1.30 (0.87-1.13) H 04/20/19 03:55 APTT 48.5 Sec. (24.2-36.6) H 04/17/19 21:35 Sodium 145 mmol/L (137-145) 04/20/19 03:55 Potassium 3.8 mmol/L (3.6-5.0) 04/20/19 03:55 Chloride 101.3 mmol/L (98-107) 04/20/19 03:55 Carbon Dioxide 25 mmol/L (22-30) 04/20/19 03:55 Anion Gap 23 mmol/L 04/20/19 03:55 BUN 26 mg/dL (7-17) H 04/20/19 03:55 Creatinine 5.1 mg/dL (0.7-1.2) H 04/20/19 03:55 Estimated GFR 10 ml/min 04/20/19 03:55 BUN/Creatinine Ratio 5 % 04/20/19 03:55 Glucose 110 mg/dL (65-100) H 04/20/19 03:55 POC Glucose 122 (70-105) H 04/20/19 00:05 Hemoglobin A1c < 4.0 % (4-6) L 04/18/19 04:32 Calcium 8.6 mg/dL (8.4-10.2) 04/20/19 03:55 Total Bilirubin 0.40 mg/dL (0.1-1.2) 04/18/19 04:32 AST 19 units/L (5-40) 04/18/19 04:32 ALT 11 units/L (7-56) 04/18/19 04:32 Alkaline Phosphatase 84 units/L (35-129) 04/18/19 04:32 Total Protein 5.9 g/dL (6.3-8.2) L 04/18/19 04:32 Albumin 2.6 g/dL (3.9-5) L 04/18/19 04:32 Albumin/Globulin Ratio 0.8 % 04/18/19 04:32 Blood Type A POSITIVE 04/17/19 21:35 Antibody Screen Negative 04/17/19 21:35 Crossmatch See Detail 04/17/19 21:35 Active Medications - Current Medications Current Medications: Generic Name Dose Route Start Last Admin Trade Name Freq PRN Reason Stop Dose Admin Atorvastatin Calcium 40 mg 04/19/19 22:00 04/19/19 21:45 Lipitor PO 40 mg QHS THAD Administration Clonidine HCl 0.3 mg 04/17/19 19:00 04/17/19 21:05 Catapres-Tts Patch TD 0.3 mg Temple THAD Administration Divalproex Sodium 250 mg 04/19/19 22:00 04/19/19 21:45 Depakote Er PO 250 mg BID THAD Administration Hydromorphone HCl 0.5 mg 04/17/19 17:02 04/19/19 09:18 Dilaudid IV 0.5 mg Q3H PRN Administration Pain , Severe (7-10) Sodium Chloride 100 mls @ 999 mls/hr 04/17/19 15:20 Nacl 0.9% IV BRIGIDA PRN Hypotension Olanzapine 10 mg 04/20/19 10:00 Zyprexa PO DAILY THAD Ondansetron HCl 4 mg 04/19/19 07:30 Zofran IV Q4H PRN Nausea And Vomiting Pantoprazole Sodium 40 mg 04/18/19 22:00 04/19/19 21:46 Protonix IV 40 mg BID THAD Administration Sodium Chloride 10 ml 04/17/19 22:00 04/19/19 21:46 Sodium Chloride Flush Syringe 10 Ml IV 10 ml BID THAD Administration Sodium Chloride 10 ml 04/17/19 17:02 Sodium Chloride Flush Syringe 10 Ml IV PRN PRN LINE FLUSH Nutrition/Malnutrition Assess - Dietary Evaluation Nutrition/Malnutrition Findings: Nutrition Notes Start: 04/18/19 12:46 Freq: Status: Active Protocol: Document 04/18/19 12:46 LM (Rec: 04/18/19 12:47 LM [id number]) Nutrition Notes Need for Assessment 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 No barrera score in chart and no documentation of wound Nutrition Intervention Revisit per MD consult or patient Sign Off request:
[2019-04-20] MEDS ORDERED: SODIUM CHLORIDE 0.9% 1000 ML 1,000 ML IV SCH ×2 (08:00→08:30)
--- NOTE | 2019-04-20 08:20 | Anesthesia Consultation ---
Anesthesia Consult and Med Hx Date of service: 04/20/19 - Airway Anesthetic Teeth Evaluation: Poor ROM Head & Neck: Adequate Mental/Hyoid Distance: Adequate Mallampati Class: Class III Intubation Access Assessment: Probably Good - Pre-Operative Health Status ASA Pre-Surgery Classification: ASA4 Proposed Anesthetic Plan: MAC - Pulmonary Hx Smoking: No Hx Asthma: No Hx Respiratory Symptoms: Yes (bronchitis) COPD: No Hx Pneumonia: Yes - Cardiovascular System Hx Hypertension: Yes (CHF) Hx Coronary Artery Disease: No Hx Heart Attack/AMI: No Hx Pacemaker: No Hx Internal Defibrillator: No - Central Nervous System Hx Seizures: Yes (Quesstionable, not confirmed) CVA: Yes (TIA) Hx Back Pain: Yes (Pain throughout her body. Activity level has declined over past six months.) Hx Psychiatric Problems: Yes - Endocrine Hx Renal Disease: Yes (Chronic kidney disease, episode of acute renal failure s/p knee replacement) Hx End Stage Renal Disease: Yes (New HD, 2 months ago. Last HD Thursday) Hx Liver Disease: No Hx Insulin Dependent Diabetes: Yes Hx Thyroid Disease: Yes ("enlarged thyroid" no meds) - Hematic Hx Anemia: Yes Hx Sickle Cell Disease: No - Other Systems Hx Alcohol Use: No Hx Substance Use: No Hx Cancer: No
--- NOTE | 2019-04-20 08:21 | Anesthesia Day of Surgery ---
Anesthesia Day of Surgery - Day of Surgery Patient H&P Reviewed: Yes Patient is NPO: Yes Beta Blockers: Yes
[2019-04-20] MEDS ORDERED: LIDOCAINE MPF (2%) 20 MG/1 ML VIAL 5 ML ONE (08:30)
[2019-04-20] MEDS ORDERED: propofoL 200 MG/20 ML VIAL IV ONE ×2 (09:36)
[2019-04-20] MEDS ORDERED: METOPROLOL TARTRATE 5 MG/5 ML INJ IV ONE (10:01)
--- NOTE | 2019-04-20 10:07 | Operative Report ---
Operative Report Operative Report: Colonoscopy Procedure Note with biopsies and tattoo placement Date of procedure: 04/20/2019 Endoscopist: Irving Quintana Pre-op diagnosis/indication: GI bleed, hematochezia Post-op diagnosis: Colon mass with small blood clot; moses diverticulosis MEDICATIONS: MAC COMPLICATIONS: No immediate complications ESTIMATED BLOOD LOSS: Minimal DESCRIPTION OF PROCEDURE: After consent was obtained, the patient was placed in the left lateral decubitis position. The olympus colonoscope was inserted into the rectum and advanced to the cecum without difficulty. The patient tolerated the procedure well. The views of the mucosa were fair. The quality of prep was fair/adequate. the patient's vital signs were monitored continuously throughout the procedure. FINDINGS: There was a polypoid appearing mass in the suspected descending colon. The mass was encompassing ~1/3 of the mucosa and was non-obstructing. The lesion was friable with contact. There was a small clot without underlying high risk bleeding lesions when the clot was irrigated. Biopsies were obtained. Tattoo was placed distal to this lesion. There was diverticulosis throughout the colon Internal hemorrhoids were visualized on retro-flexion view. IMPRESSION: 1. Mass in the suspected descending colon. Multiple biopsies obtained (suspected malignancy). Tattoo placed distal this this site. 2. Moses-diverticulosis 3. Internal hemorrhoids RECOMMENDATIONS: -follow-up pathology -check CEA level -will need surgery consult (even if bath non-diagnostic as suspect this is source of patient's recurrent bleeding, although suspect this is malignancy based on appearance) -monitor labs and trend as needed to keep hgb > 7
--- NOTE | 2019-04-20 12:11 | Progress Note ---
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 ESRD on HD HTN Hx of CHF DM Type 2 on insulin Plan: - HD today for UF and clearance - Assess need for HD on daily basis - Epogen dosing for anemia management - S/p blood transfusion - GI on board, s/p colonoscopy on 04/20/19 showed mass in the suspected descending colon, multiple biopsies obtained (suspected malignancy), tattoo placed distal this site, moses-diverticulosis, internal hemorrhoids per GI Op note - Renally dose meds - This pt undergoes outpatient HD at [facility] every MWF - Renal plan d/w Dr Mauro Subjective Principal diagnosis: GI bleed Interval history: Pt seen in bed, s/p colonoscopy today, states she had some shortness of breath earlier today, but denies shortness of breath now, no acute distress, no family at bedside Objective - Vital Signs Vital signs: Vital Signs - 12hr 04/20/19 04/20/19 04/20/19 01:07 01:56 02:00 Temperature 98.8 F Pulse Rate 112 H 111 H Respiratory 18 Rate Respiratory 20 Rate [Abdomen] Respiratory 20 Rate [right leg ] Blood Pressure 153/77 O2 Sat by Pulse 95 Oximetry 04/20/19 04/20/19 04/20/19 08:01 10:20 10:24 Temperature 98.6 F 99.7 F H Pulse Rate 105 H 112 H 109 H Respiratory 11 L 28 H 10 L Rate Respiratory Rate [Abdomen] Respiratory Rate [right leg ] Blood Pressure 188/86 192/85 175/81 O2 Sat by Pulse 95 94 93 Oximetry 04/20/19 04/20/19 04/20/19 10:29 10:39 10:49 Temperature Pulse Rate 108 H 103 H 104 H Respiratory 12 23 13 Rate Respiratory Rate [Abdomen] Respiratory Rate [right leg ] Blood Pressure 185/77 182/71 169/71 O2 Sat by Pulse 93 92 92 Oximetry - General Appearance General appearance: well-developed EENT: ATNC Neck: no JVD Respiratory: Present: Decreased Breath Sounds Cardiology: regular, S1S2, other (ACCESS: Left AVF + thrill and bruit noted) Gastrointestinal: normoactive bowel sounds Integumentary: warm and dry Neurologic: other (awake, alert, follows simple commands) Musculoskeletal: other (trace edema to BLE) Psychiatric: cooperative - Lab 04/20/19 03:55 04/20/19 03:55 Most recent lab results Calcium 8.6 mg/dL (8.4-10.2) 04/20/19 03:55 Medications & Allergies - Medications Allergies/Adverse Reactions: Allergies iodine Allergy (Verified 04/17/19 11:03) Unknown morphine Allergy (Verified 04/17/19 11:03) Unknown Penicillins Allergy (Verified 04/17/19 11:03) Vomiting Sulfa (Sulfonamide Antibiotics) Allergy (Verified 04/17/19 11:03) Vomiting Home Medications: Home Medications Medication Instructions Recorded Confirmed Last Taken Type Acetaminophen [Acetaminophen TAB] 500 mg PO TID 04/12/19 04/17/19 Unknown History AtorvaSTATin [Lipitor] 40 mg PO QHS 04/12/19 04/17/19 Unknown History Cyclobenzaprine [Flexeril 10 MG 10 mg PO TID PRN 04/12/19 04/17/19 Unknown History TAB] Divalproex ER [Depakote ER] 250 mg PO BID 04/12/19 04/17/19 Unknown History Doxazosin Mesylate 8 mg PO BID 04/12/19 04/17/19 Unknown History Folic Acid/Vit B Complex and C 800 mg PO QDAY 04/12/19 04/17/19 Unknown History [Dialyvite 800 Chewable Wafer] Furosemide [Lasix TAB] 40 mg PO QDAY 04/12/19 04/17/19 Unknown History Insulin Aspart (Nf) [NovoLOG 100 7 units SUB-Q TID 04/12/19 04/17/19 Unknown History UNITS/ML VIAL] Insulin Glargine [Lantus VIAL] 10 unit SUB-Q QHS 04/12/19 04/17/19 Unknown History Losartan [Cozaar] 50 mg PO BID 04/12/19 04/17/19 Unknown History OLANzapine [Zyprexa] 10 mg PO DAILY 04/12/19 04/17/19 Unknown History Pregabalin 25 mg PO QDAY 04/12/19 04/17/19 Unknown History Metoprolol [Lopressor TAB] 50 mg PO BID #60 tablet 04/14/19 04/17/19 Unknown Rx Pantoprazole [Protonix TAB] 40 mg PO BID #60 tablet 04/14/19 04/17/19 Unknown Rx Active Medications: Generic Name Dose Route Start Last Admin Trade Name Freq PRN Reason Stop Dose Admin Atorvastatin Calcium 40 mg 04/19/19 22:00 04/19/19 21:45 Lipitor PO 40 mg QHS THAD Administration Clonidine HCl 0.3 mg 04/17/19 19:00 04/17/19 21:05 Catapres-Tts Patch TD 0.3 mg Temple THAD Administration Divalproex Sodium 250 mg 04/19/19 22:00 04/19/19 21:45 Depakote Er PO 250 mg BID THAD Administration Hydromorphone HCl 0.5 mg 04/17/19 17:02 04/19/19 09:18 Dilaudid IV 0.5 mg Q3H PRN Administration Pain , Severe (7-10) Sodium Chloride 100 mls @ 999 mls/hr 04/17/19 15:20 Nacl 0.9% IV BRIGIDA PRN Hypotension Sodium Chloride 1,000 mls @ 50 mls/hr 04/20/19 08:00 Nacl 0.9% 1000 Ml IV DIRECT THAD Olanzapine 10 mg 04/20/19 10:00 Zyprexa PO DAILY [facility] Ondansetron HCl 4 mg 04/19/19 07:30 Zofran IV Q4H PRN Nausea And Vomiting Pantoprazole Sodium 40 mg 04/18/19 22:00 04/19/19 21:46 Protonix IV 40 mg BID THAD Administration Sodium Chloride 10 ml 04/17/19 22:00 04/19/19 21:46 Sodium Chloride Flush Syringe 10 Ml IV 10 ml BID THAD Administration Sodium Chloride 10 ml 04/17/19 17:02 Sodium Chloride Flush Syringe 10 Ml IV PRN PRN LINE FLUSH
[2019-04-20] MEDS ORDERED: EPOETIN ALFA 10,000 UNIT/1 ML INJ SUB-Q SCH (13:00)
[2019-04-20] MEDS: PANTOPRAZOLE 40 MG INJ IV SCH ×2 (13:15→22:49)
[2019-04-20] MEDS: DIVALPROEX ER 250 MG TAB PO SCH ×2 (13:15→22:49)
--- NOTE | 2019-04-20 14:37 | Post Anesthesia Evaluation ---
- Post Anesthesia Evaluation Patient Participated: Yes Airway Patent: Yes Stable Respiratory Function: Yes Nausea/Vomiting: No Temp > 96.8F: Yes Pain Manageable: Yes Adequeate Hydration: Yes Anesthesia Complications: No Block Receding Appropriately: Not Applicable Patient on Ventilator: No
[2019-04-21 05:36] LABS: Hematocrit 24.5 % (30.3-42.9); Hemoglobin 7.9 gm/dl (10.1-14.3); Mean Corpuscular HGB Conc 32 % (30-34); Mean Corpuscular Volume 90 fl (79-97); Platelet Count 324 K/mm3 (140-440); Red Blood Count 2.72 M/mm3 (3.65-5.03)
[2019-04-21] MEDS: HYDROmorphone 1 MG/1 ML INJ IV PRN (07:54)
[2019-04-21] MEDS: PANTOPRAZOLE 40 MG INJ IV SCH ×2 (10:05→22:31)
[2019-04-21] MEDS: DIVALPROEX ER 250 MG TAB PO SCH ×2 (10:05→22:31)
--- NOTE | 2019-04-21 10:17 | Gastroenterology Progress Note ---
<RAE HERNANDEZ - Last Filed: 04/21/19 10:49> Assessment and Plan 1.recurrent GI bleed/BRBPR 2.acute on chronic anemia (recent bone marrow bx) 3.ESRD on HD -H/H 7.9/24.5-stable -continue to monitor H/H and transfuse as needed (keep hgb >7) -EGD in 2015 for dysphagia/odynophagia showed esophagitis -colonoscopy 09/[address] Frazier for anemia that showed diverticulosis, internal hemorrhoids, and mild irritation in rectum with bx results benign -bleeding scan 04/12/19 positive for bleeding in the midepigastrium -s/p repeat EGD 04/13/19 that showed: 1. Antral gastritis with a small clean based ulcer without bleeding. Bx negative for H pylori/malignancy. 2. Normal esophagus and duodenum exam. 3. No sites of active bleeding noted. -s/p repeat colonoscopy yesterday (04/20/19) that revealed a polypoid appearing mass in the suspected descending colon (encompassing ~1/3 of the mucosa and was non-obstructing; bx obtained and tattoo placed) -bx results pending of colon mass -clinically, patient is stable with no active signs of bleeding overnight or this am. Tolerating diet. -CEA level pending -continue PPI -avoid NSAIDs -if path results positive for malignancy, recommend surgery and oncology consult -will likely need surgery consult even if path negative as suspect this is source of patient's recurrent bleeding -will follow path Subjective Date of service: 04/21/19 Principal diagnosis: GI bleed Interval history: Patient sitting up in bed this am eating breakfast w/o acute distress. No active signs of bleeding overnight or this am per pt/nursing. Objective - Constitutional Vitals: Temp Pulse Resp BP Pulse Ox 98.6 F 101 H 18 136/55 92 04/21/19 07:44 04/21/19 07:44 04/21/19 08:24 04/21/19 07:44 04/21/19 07:44 General appearance: no acute distress, other (obese) - EENT Eyes: PERRL, EOM intact ENT: hearing intact - Respiratory Respiratory effort: normal - Cardiovascular Rhythm: regular - Gastrointestinal General gastrointestinal: Present: soft, non-tender, non-distended, normal bowel sounds - Integumentary Integumentary: Present: warm, dry - Neurologic Neurological: oriented to person, oriented to place - Labs CBC & Chem 7: 04/21/19 04:46 04/20/19 03:55 Labs: Laboratory Results - last 24 hr 04/17/19 04/21/19 04/21/19 13:25 04:46 07:54 WBC 14.1 H RBC 2.72 L Hgb 7.9 L Hct 24.5 L MCV 90 MCH 29 MCHC 32 RDW 18.0 H Plt Count 324 WBC Morphology Not Reportable POC Glucose 120 H <NICKO NICK - Last Filed: 04/21/19 16:05> Assessment and Plan Patient seen and examined; agree with note above. Objective - Constitutional Vitals: Temp Pulse Resp BP Pulse Ox 98.3 F 121 H 18 128/46 98 04/21/19 13:15 04/21/19 13:15 04/21/19 13:15 04/21/19 13:15 04/21/19 13:15 - Labs CBC & Chem 7: 04/21/19 04:46 04/20/19 03:55 Labs: Laboratory Results - last 24 hr 04/21/19 04/21/19 04/21/19 04:46 07:54 11:48 WBC 14.1 H RBC 2.72 L Hgb 7.9 L Hct 24.5 L MCV 90 MCH 29 MCHC 32 RDW 18.0 H Plt Count 324 POC Glucose 120 H 147 H
--- NOTE | 2019-04-21 11:55 | Progress Note ---
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 ESRD on HD HTN Hx of CHF DM Type 2 on insulin Plan: - no indication for HD today - Assess need for HD on daily basis - Epogen dosing for anemia management - S/p blood transfusion - GI on board, s/p colonoscopy on 04/20/19 showed mass in the suspected descending colon, multiple biopsies obtained (suspected malignancy), tattoo placed distal this site, moses-diverticulosis, internal hemorrhoids per GI Op note - Renally dose meds - This pt undergoes outpatient HD at [facility] [place] MWF Subjective Date of service: 04/21/19 Principal diagnosis: GI bleed Interval history: HD tolerated well yesterday Objective - Vital Signs Vital signs: Vital Signs - 12hr 04/21/19 04/21/19 04/21/19 02:09 04:00 07:44 Temperature 99.4 F 98.6 F Pulse Rate 106 H 108 H 101 H Respiratory 18 18 Rate Blood Pressure 145/67 136/55 O2 Sat by Pulse 93 92 Oximetry 04/21/19 04/21/19 07:54 08:24 Temperature Pulse Rate Respiratory 18 18 Rate Blood Pressure O2 Sat by Pulse Oximetry - Lab 04/21/19 04:46 04/20/19 03:55 Most recent lab results Calcium 8.6 mg/dL (8.4-10.2) 04/20/19 03:55 Medications & Allergies - Medications Allergies/Adverse Reactions: Allergies iodine Allergy (Verified 04/17/19 11:03) Unknown morphine Allergy (Verified 04/17/19 11:03) Unknown Penicillins Allergy (Verified 04/17/19 11:03) Vomiting Sulfa (Sulfonamide Antibiotics) Allergy (Verified 04/17/19 11:03) Vomiting Home Medications: Home Medications Medication Instructions Recorded Confirmed Last Taken Type Acetaminophen [Acetaminophen TAB] 500 mg PO TID 04/12/19 04/17/19 Unknown History AtorvaSTATin [Lipitor] 40 mg PO QHS 04/12/19 04/17/19 Unknown History Cyclobenzaprine [Flexeril 10 MG 10 mg PO TID PRN 04/12/19 04/17/19 Unknown History TAB] Divalproex ER [Depakote ER] 250 mg PO BID 04/12/19 04/17/19 Unknown History Doxazosin Mesylate 8 mg PO BID 04/12/19 04/17/19 Unknown History Folic Acid/Vit B Complex and C 800 mg PO QDAY 04/12/19 04/17/19 Unknown History [Dialyvite 800 Chewable Wafer] Furosemide [Lasix TAB] 40 mg PO QDAY 04/12/19 04/17/19 Unknown History Insulin Aspart (Nf) [NovoLOG 100 7 units SUB-Q TID 04/12/19 04/17/19 Unknown History UNITS/ML VIAL] Insulin Glargine [Lantus VIAL] 10 unit SUB-Q QHS 04/12/19 04/17/19 Unknown History Losartan [Cozaar] 50 mg PO BID 04/12/19 04/17/19 Unknown History OLANzapine [Zyprexa] 10 mg PO DAILY 04/12/19 04/17/19 Unknown History Pregabalin 25 mg PO QDAY 04/12/19 04/17/19 Unknown History Metoprolol [Lopressor TAB] 50 mg PO BID #60 tablet 04/14/19 04/17/19 Unknown Rx Pantoprazole [Protonix TAB] 40 mg PO BID #60 tablet 04/14/19 04/17/19 Unknown Rx Active Medications: Generic Name Dose Route Start Last Admin Trade Name Freq PRN Reason Stop Dose Admin Atorvastatin Calcium 40 mg 04/19/19 22:00 04/20/19 22:49 Lipitor PO 40 mg QHS THAD Administration Clonidine HCl 0.3 mg 04/17/19 19:00 04/17/19 21:05 Catapres-Tts Patch TD 0.3 mg Temple THAD Administration Divalproex Sodium 250 mg 04/19/19 22:00 04/21/19 10:05 Depakote Er PO 250 mg BID THAD Administration Epoetin Glynn 10,000 unit 04/20/19 13:00 Procrit SUB-Q BRIGIDA THAD Hydromorphone HCl 0.5 mg 04/17/19 17:02 04/21/19 07:54 Dilaudid IV 0.5 mg Q3H PRN Administration Pain , Severe (7-10) Sodium Chloride 100 mls @ 999 mls/hr 04/17/19 15:20 Nacl 0.9% IV BRIGIDA PRN Hypotension Sodium Chloride 1,000 mls @ 50 mls/hr 04/20/19 08:00 Nacl 0.9% 1000 Ml IV DIRECT THAD Olanzapine 10 mg 04/20/19 10:00 04/21/19 10:05 Zyprexa PO 10 mg DAILY THAD Administration Ondansetron HCl 4 mg 04/19/19 07:30 Zofran IV Q4H PRN Nausea And Vomiting Pantoprazole Sodium 40 mg 04/18/19 22:00 04/21/19 10:05 Protonix IV 04/21/19 23:59 40 mg BID THAD Administration Pantoprazole Sodium 40 mg 04/22/19 10:00 Protonix PO BID THAD Sodium Chloride 10 ml 04/17/19 22:00 04/21/19 10:05 Sodium Chloride Flush Syringe 10 Ml IV 10 ml BID THAD Administration Sodium Chloride 10 ml 04/17/19 17:02 Sodium Chloride Flush Syringe 10 Ml IV PRN PRN LINE FLUSH
--- NOTE | 2019-04-21 18:44 | Progress Note ---
Assessment and Plan - Patient Problems (1) GI bleed Current Visit: Yes Status: Acute Qualifiers: GI bleed type/associated pathology: diverticulosis Qualified Code(s): K57.91 - Diverticulosis of intestine, part unspecified, without perforation or abscess with bleeding Plan to address problem: -s/p repeat colonoscopy yesterday (04/20/19) that revealed a POLYPOID appearing mass in the suspected descending colon (encompassing ~1/3 of the mucosa and was non-obstructing; bx obtained and tattoo placed) -bx results pending of colon mass -clinically, patient is stable with no active signs of bleeding overnight or this am. Tolerating diet. -CEA level pending -continue PPI -avoid NSAIDs -if path results positive for malignancy, recommend surgery and oncology consult -will likely need surgery consult even if path negative as suspect this is source of patient's recurrent bleeding -will follow path *Surgery consult requested for polypoid mass in descending colon. -H/H 7.9/24.5-stable -continue to monitor H/H and transfuse as needed (keep hgb >7) -EGD in 2015 for dysphagia/odynophagia showed esophagitis -colonoscopy 09/[address] Frazier for anemia that showed diverticulosis, internal hemorrhoids, and mild irritation in rectum with bx results benign -bleeding scan 04/12/19 positive for bleeding in the midepigastrium -s/p repeat EGD 04/13/19 that showed: 1. Antral gastritis with a small clean based ulcer without bleeding. Bx negative for H pylori/malignancy. 2. Normal esophagus and duodenum exam. 3. No sites of active bleeding noted. (2) Diverticulosis Current Visit: Yes Status: Chronic Plan to address problem: On CT abdomen High fiber diet (3) ESRD on hemodialysis Current Visit: No Status: Chronic Plan to address problem: Cont HD (4) HTN (hypertension) Current Visit: No Status: Chronic Qualifiers: Hypertension type: essential hypertension Qualified Code(s): I10 - Essential (primary) hypertension Plan to address problem: Resume antihypertensives when she starts eating (5) IDDM (insulin dependent diabetes mellitus) Current Visit: No Status: Chronic Plan to address problem: Insulin coverage for now (6) Peripheral neuropathy Current Visit: No Status: Chronic Qualifiers: Peripheral neuropathy type: polyneuropathy, unspecified Qualified Code(s): G62.9 - Polyneuropathy, unspecified Plan to address problem: Hold Gabapentin for now (7) DVT prophylaxis Current Visit: No Status: Acute Plan to address problem: On Scd'sand GI prophylaxis (8) Discharge planning issues Current Visit: Yes Status: Acute Plan to address problem: Stable for discharge Follow up on surgery consult for Polypoid mass in Descending colon Path results to be checked Subjective Date of service: 04/21/19 Principal diagnosis: GI bleed Interval history: No further GI bleed Objective - Constitutional Vitals: Vital Signs - 12hr 04/21/19 04/21/19 04/21/19 07:44 07:54 08:24 Temperature 98.6 F Pulse Rate 101 H Respiratory 18 18 18 Rate Blood Pressure 136/55 O2 Sat by Pulse 92 Oximetry 04/21/19 13:15 Temperature 98.3 F Pulse Rate 121 H Respiratory 18 Rate Blood Pressure 128/46 O2 Sat by Pulse 98 Oximetry General appearance: Present: no acute distress, well-nourished - EENT Eyes: PERRL, EOM intact ENT: hearing intact, clear oral mucosa Ears: bilateral: normal - Neck Neck: supple, normal ROM - Respiratory Respiratory effort: normal Respiratory: bilateral: CTA - Breasts Breasts: normal - Cardiovascular Heart rate: 78 Rhythm: regular Heart Sounds: Present: S1 & S2. Absent: gallop, rub Extremities: pulses intact, No edema, normal color, Full ROM - Gastrointestinal General gastrointestinal: Present: soft, non-tender, non-distended, normal bowel sounds - Genitourinary Female genitourinary: normal - Integumentary Integumentary: clear, warm, dry - Musculoskeletal Musculoskeletal: 1, strength equal bilaterally - Neurologic Neurologic: moves all extremities - Psychiatric Psychiatric: memory intact, appropriate mood/affect, intact judgment & insight - Labs CBC & Chem 7: 04/21/19 04:46 04/20/19 03:55 Labs: Abnormal lab results 04/21/19 04/21/19 04/21/19 Range/Units 04:46 07:54 11:48 WBC 14.1 H (4.5-11.0) K/mm3 RBC 2.72 L (3.65-5.03) M/mm3 Hgb 7.9 L (10.1-14.3) gm/dl Hct 24.5 L (30.3-42.9) % RDW 18.0 H (13.2-15.2) % POC Glucose 120 H 147 H (70-105) 04/21/19 Range/Units 16:36 WBC (4.5-11.0) K/mm3 RBC (3.65-5.03) M/mm3 Hgb (10.1-14.3) gm/dl Hct (30.3-42.9) % RDW (13.2-15.2) % POC Glucose 136 H (70-105)
[2019-04-22] MEDS ORDERED: PANTOPRAZOLE 40 MG TAB PO SCH (10:00)
--- NOTE | 2019-04-22 10:01 | Gastroenterology Progress Note ---
<RAE HERNANDEZ - Last Filed: 04/22/19 09:54> Assessment and Plan 1.recurrent GI bleed/BRBPR 2.acute on chronic anemia (recent bone marrow bx) 3.ESRD on HD -H/H-stable -continue to monitor H/H and transfuse as needed (keep hgb >7) -CEA pending -EGD in 2015 for dysphagia/odynophagia showed esophagitis -colonoscopy 09/[address] Frazier for anemia that showed diverticulosis, internal hemorrhoids, and mild irritation in rectum with bx results benign -bleeding scan 04/12/19 positive for bleeding in the midepigastrium -s/p repeat EGD 04/13/19 that showed: 1. Antral gastritis with a small clean based ulcer without bleeding. Bx negative for H pylori/malignancy. 2. Normal esophagus and duodenum exam. 3. No sites of active bleeding noted. -s/p repeat colonoscopy (04/20/19) that revealed a polypoid appearing mass in the suspected descending colon (encompassing ~1/3 of the mucosa and was non- obstructing; bx obtained and tattoo placed) -colon bx results showed inflammation and no malignancy -clinically, patient is stable with no active signs of bleeding overnight or this am. Tolerating diet. -continue PPI -avoid NSAIDs -patient will need repeat colonoscopy in ~4 weeks to re-evaluate findings as above -if re-bleeds, will likely need surgical intervention -will order repeat H/H today, if stable patient okay to be d/c with f/u in clinic in ~2 week to schedule repeat colonoscopy as outpatient (spoke with patient and daughter Ellen via phone this am with plan of care discussed and understanding voiced) Subjective Date of service: 04/22/19 Principal diagnosis: GI bleed Interval history: Patient resting in bed this am w/o acute distress. Reports continued mild LLQ abd discomfort w/o change. No N/V or signs of bleeding overnight or this am. Tolerating diet. Objective - Constitutional Vitals: Temp Pulse Resp BP Pulse Ox 98.3 F 105 H 20 128/59 96 04/22/19 07:34 04/22/19 07:34 04/22/19 07:34 04/22/19 07:34 04/22/19 08:56 General appearance: no acute distress, obese - EENT Eyes: PERRL, EOM intact ENT: hearing intact - Respiratory Respiratory effort: normal - Cardiovascular Rhythm: other (tachycardia) - Gastrointestinal General gastrointestinal: Present: soft, non-tender, non-distended, normal bowel sounds, other (obese) - Integumentary Integumentary: Present: warm, dry - Neurologic Neurological: oriented to person, oriented to place - Labs CBC & Chem 7: 04/21/19 04:46 04/20/19 03:55 Labs: Laboratory Results - last 24 hr 04/21/19 04/21/19 04/21/19 11:48 16:36 22:03 POC Glucose 147 H 136 H 168 H 04/22/19 07:30 POC Glucose 122 H <NICKO NICK - Last Filed: 04/22/19 14:42> Assessment and Plan Patient seen and examined; agree with note above. path findings reviewed; H/H stable and denies further bleeding episodes. complete course of abx, and plan for repeat outpt colonoscopy in ~1 month. f/u in GI clinic in 2 weeks. will sign off, please call as needed. Objective - Constitutional Vitals: Temp Pulse Resp BP Pulse Ox 98.3 F 105 H 20 128/59 96 04/22/19 07:34 04/22/19 07:34 04/22/19 07:34 04/22/19 07:34 04/22/19 08:56 - Labs CBC & Chem 7: 04/22/19 12:35 04/20/19 03:55 Labs: Laboratory Results - last 24 hr 04/21/19 04/21/19 04/22/19 16:36 22:03 07:30 Hgb Hct POC Glucose 136 H 168 H 122 H 04/22/19 04/22/19 11:53 12:35 Hgb 7.8 L Hct 22.7 L POC Glucose 127 H
[2019-04-22] MEDS: DIVALPROEX ER 250 MG TAB PO SCH (10:12)
--- NOTE | 2019-04-22 10:15 | Consultation ---
History of Present Illness Consult date: 04/22/19 Chief complaint: Rectal bleeding - History of present illness History of present illness: 74-year-old female with a history of CHF, diabetes, hypertension, end-stage renal disease on hemodialysis, anemia who presented to the emergency room with bright red blood per rectum. The patient has been admitted on 04/12/19 for similar symptoms. Today, the patient states that she is having some left lower quadrant abdominal pain that started since her colonoscopy which was done two days ago. She states that she has been passing a large amount of flatus and this is helped lessen the pain. She has not had a bowel movement since yest erday. She denies any rectal bleeding. She is tolerating a diet. No nausea, vomiting, fevers, chills, chest pain, shortness of breath. A colonoscopy was performed on 04/20/[address] Quintana which showed nonobstructing polypoid mass in the sigmoid colon which was friable upon contact, however without active signs of bleeding. She was also found to have diverticulosis. During recent admission on 04/12/19, the patient had similar symptoms and underwent bleeding scan. The bleeding scan was positive in the mid epigastrium and the patient underwent an EGD. EGD did show gastritis and a small clean- based ulcer without bleeding. Past History Past Medical History: anemia, diabetes, dialysis, ESRD, GERD, heart failure, hypertension, hyperlipidemia, seizures, stroke (TIA), other (dementia,chronic abd pain) Past Surgical History: appendectomy, , hysterectomy, total knee replacement Social history: lives with family. denies: smoking, alcohol abuse Medications and Allergies Allergies Allergy/AdvReac Type Severity Reaction Status Date / Time iodine Allergy Unknown Verified 04/17/19 11:03 morphine Allergy Unknown Verified 04/17/19 11:03 Penicillins Allergy Vomiting Verified 04/17/19 11:03 Sulfa (Sulfonamide Allergy Vomiting Verified 04/17/19 11:03 Antibiotics) Home Medications Medication Instructions Recorded Confirmed Last Taken Type Acetaminophen [Acetaminophen TAB] 500 mg PO TID 04/12/19 04/17/19 Unknown History AtorvaSTATin [Lipitor] 40 mg PO QHS 04/12/19 04/17/19 Unknown History Cyclobenzaprine [Flexeril 10 MG 10 mg PO TID PRN 04/12/19 04/17/19 Unknown History TAB] Divalproex ER [Depakote ER] 250 mg PO BID 04/12/19 04/17/19 Unknown History Doxazosin Mesylate 8 mg PO BID 04/12/19 04/17/19 Unknown History Folic Acid/Vit B Complex and C 800 mg PO QDAY 04/12/19 04/17/19 Unknown History [Dialyvite 800 Chewable Wafer] Furosemide [Lasix TAB] 40 mg PO QDAY 04/12/19 04/17/19 Unknown History Insulin Aspart (Nf) [NovoLOG 100 7 units SUB-Q TID 04/12/19 04/17/19 Unknown History UNITS/ML VIAL] Insulin Glargine [Lantus VIAL] 10 unit SUB-Q QHS 04/12/19 04/17/19 Unknown History Losartan [Cozaar] 50 mg PO BID 04/12/19 04/17/19 Unknown History OLANzapine [Zyprexa] 10 mg PO DAILY 04/12/19 04/17/19 Unknown History Pregabalin 25 mg PO QDAY 04/12/19 04/17/19 Unknown History Metoprolol [Lopressor TAB] 50 mg PO BID #60 tablet 04/14/19 04/17/19 Unknown Rx Pantoprazole [Protonix TAB] 40 mg PO BID #60 tablet 04/14/19 04/17/19 Unknown Rx Active Meds: Active Medications Atorvastatin Calcium (Lipitor) 40 mg PO QHS [facility] Last Admin: 04/21/19 22:31 Dose: 40 mg Documented by: Clonidine HCl (Catapres-Tts Patch) 0.3 mg TD Temple [facility] Last Admin: 04/17/19 21:05 Dose: 0.3 mg Documented by: Divalproex Sodium (Depakote Er) 250 mg PO BID [facility] Last Admin: 04/22/19 10:12 Dose: 250 mg Documented by: Epoetin Glynn (Procrit) 10,000 unit SUB-Q BRIGIDA [facility] Hydromorphone HCl (Dilaudid) 0.5 mg IV Q3H PRN PRN Reason: Pain , Severe (7-10) Last Admin: 04/21/19 07:54 Dose: 0.5 mg Documented by: Sodium Chloride (Nacl 0.9%) 100 mls @ 999 mls/hr IV BRIGIDA PRN PRN Reason: Hypotension Sodium Chloride (Nacl 0.9% 1000 Ml) 1,000 mls @ 50 mls/hr IV DIRECT [facility] Olanzapine (Zyprexa) 10 mg PO DAILY [facility] Last Admin: 04/22/19 10:12 Dose: 10 mg Documented by: Ondansetron HCl (Zofran) 4 mg IV Q4H PRN PRN Reason: Nausea And Vomiting Pantoprazole Sodium (Protonix) 40 mg PO BID [facility] Last Admin: 04/22/19 10:10 Dose: 40 mg Documented by: Sodium Chloride (Sodium Chloride Flush Syringe 10 Ml) 10 ml IV BID [facility] Last Admin: 04/22/19 10:14 Dose: 10 ml Documented by: Sodium Chloride (Sodium Chloride Flush Syringe 10 Ml) 10 ml IV PRN PRN PRN Reason: LINE FLUSH Review of Systems All systems: negative (10 point review systems was performed and negative except for that listed in HPI) Exam Vital Signs Pulse Resp Pulse Ox 110 H 25 H 91 04/17/19 11:30 04/17/19 11:30 04/17/19 11:30 Narrative exam: Gen.: Awake, alert, oriented 3. No apparent distress ENT: No scleral icterus or conjunctival pallor CV: S1, S2 present Respiratory: No audible wheezes Abdomen: Soft, nondistended, very mild tenderness to palpation in the left lower quadrant without rebound rigidity or guarding Extremities: No clubbing, cyanosis, edema Results - Labs 04/21/19 04:46 04/20/19 03:55 Abnormal lab results 04/21/19 04/21/19 04/21/19 Range/Units 11:48 16:36 22:03 POC Glucose 147 H 136 H 168 H (70-105) 04/22/19 Range/Units 07:30 POC Glucose 122 H (70-105) - Imaging CT scan - abdomen: report reviewed, image reviewed CT scan - pelvis: report reviewed, image reviewed Assessment and Plan 74-year-old female with 1. GIB 2. anemia 3. multiple medical comorbidities Colon biopsy pathology - "fragmented colonic type mucosa with focal surface erosion, cryptitis, focal hyperplastic changes, patchy acute inflammation and reactive atypia. Negative for dysplasia or malignancy and submitted tissue. Fragmented colonic mucosa with focal surface erosion, cryptitis, focal hyperplastic changes, patchy acute inflammation with active atypia favoring infection secondary to ruptured diverticula." Plan: 1. Trend H/H 2. soft diet 3. transfuse as needed 4. Based on colon pathology, focal abnormal area in sigmoid may be related to acute diverticulitis. This could explain rectal bleeding. Discussed with GI service. Plan to repeat H/H and if stable, patient will follow up as outpatient for repeat cscope in 1 month to reevaluate area. 5. Recommend 10 day course of cipro/flagyl 6. No indication for urgent surgical intervention at this time. Thank you, please call with questions.
[2019-04-22] MEDS: HYDROmorphone 1 MG/1 ML INJ IV PRN (11:35)
--- NOTE | 2019-04-22 11:38 | Progress Note ---
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 ESRD on HD HTN Hx of CHF DM Type 2 on insulin Plan: - HD today for clearance and volume removal - Assess need for HD on daily basis - Epogen dosing for anemia management - S/p blood transfusion - GI on board, s/p colonoscopy on 04/20/19 showed mass in the suspected descending colon, multiple biopsies obtained (suspected malignancy), tattoo placed distal this site, moses-diverticulosis, internal hemorrhoids per GI Op note - Renally dose meds - This pt undergoes outpatient HD at [facility] MWF Subjective Date of service: 04/22/19 Principal diagnosis: GI bleed Objective - Vital Signs Vital signs: Vital Signs - 12hr 04/22/19 04/22/19 04/22/19 02:36 02:44 07:34 Temperature 98.8 F 98.5 F 98.3 F Pulse Rate 101 H 99 H 105 H Respiratory 20 20 20 Rate Blood Pressure 131/62 125/77 128/59 O2 Sat by Pulse 95 95 95 Oximetry 04/22/19 08:56 Temperature Pulse Rate Respiratory Rate Blood Pressure O2 Sat by Pulse 96 Oximetry - Lab 04/21/19 04:46 04/20/19 03:55 Most recent lab results Calcium 8.6 mg/dL (8.4-10.2) 04/20/19 03:55 Medications & Allergies - Medications Allergies/Adverse Reactions: Allergies iodine Allergy (Verified 04/17/19 11:03) Unknown morphine Allergy (Verified 04/17/19 11:03) Unknown Penicillins Allergy (Verified 04/17/19 11:03) Vomiting Sulfa (Sulfonamide Antibiotics) Allergy (Verified 04/17/19 11:03) Vomiting Home Medications: Home Medications Medication Instructions Recorded Confirmed Last Taken Type Acetaminophen [Acetaminophen TAB] 500 mg PO TID 04/12/19 04/17/19 Unknown Histor y AtorvaSTATin [Lipitor] 40 mg PO QHS 04/12/19 04/17/19 Unknown History Cyclobenzaprine [Flexeril 10 MG 10 mg PO TID PRN 04/12/19 04/17/19 Unknown History TAB] Divalproex ER [Depakote ER] 250 mg PO BID 04/12/19 04/17/19 Unknown History Doxazosin Mesylate 8 mg PO BID 04/12/19 04/17/19 Unknown History Folic Acid/Vit B Complex and C 800 mg PO QDAY 04/12/19 04/17/19 Unknown History [Dialyvite 800 Chewable Wafer] Furosemide [Lasix TAB] 40 mg PO QDAY 04/12/19 04/17/19 Unknown History Insulin Aspart (Nf) [NovoLOG 100 7 units SUB-Q TID 04/12/19 04/17/19 Unknown History UNITS/ML VIAL] Insulin Glargine [Lantus VIAL] 10 unit SUB-Q QHS 04/12/19 04/17/19 Unknown History Losartan [Cozaar] 50 mg PO BID 04/12/19 04/17/19 Unknown History OLANzapine [Zyprexa] 10 mg PO DAILY 04/12/19 04/17/19 Unknown History Pregabalin 25 mg PO QDAY 04/12/19 04/17/19 Unknown History Metoprolol [Lopressor TAB] 50 mg PO BID #60 tablet 04/14/19 04/17/19 Unknown Rx Pantoprazole [Protonix TAB] 40 mg PO BID #60 tablet 04/14/19 04/17/19 Unknown Rx Active Medications: Generic Name Dose Route Start Last Admin Trade Name Freq PRN Reason Stop Dose Admin Atorvastatin Calcium 40 mg 04/19/19 22:00 04/21/19 22:31 Lipitor PO 40 mg QHS THAD Administration Clonidine HCl 0.3 mg 04/17/19 19:00 04/17/19 21:05 Catapres-Tts Patch TD 0.3 mg Temple THAD Administration Divalproex Sodium 250 mg 04/19/19 22:00 04/22/19 10:12 Depakote Er PO 250 mg BID THAD Administration Epoetin Glynn 10,000 unit 04/20/19 13:00 Procrit SUB-Q BRIGIDA THAD Hydromorphone HCl 0.5 mg 04/17/19 17:02 04/22/19 11:35 Dilaudid IV 0.5 mg Q3H PRN Administration Pain , Severe (7-10) Sodium Chloride 100 mls @ 999 mls/hr 04/17/19 15:20 Nacl 0.9% IV BRIGIDA PRN Hypotension Sodium Chloride 1,000 mls @ 50 mls/hr 04/20/19 08:00 Nacl 0.9% 1000 Ml IV DIRECT THAD Olanzapine 10 mg 04/20/19 10:00 04/22/19 10:12 Zyprexa PO 10 mg DAILY THAD Administration Ondansetron HCl 4 mg 04/19/19 07:30 Zofran IV Q4H PRN Nausea And Vomiting Pantoprazole Sodium 40 mg 04/22/19 10:00 04/22/19 10:10 Protonix PO 40 mg BID THAD Administration Sodium Chloride 10 ml 04/17/19 22:00 04/22/19 10:14 Sodium Chloride Flush Syringe 10 Ml IV 10 ml BID THAD Administration Sodium Chloride 10 ml 04/17/19 17:02 Sodium Chloride Flush Syringe 10 Ml IV PRN PRN LINE FLUSH
[2019-04-22 12:44] LABS: Hematocrit 22.7 % (30.3-42.9); Hemoglobin 7.8 gm/dl (10.1-14.3)
--- NOTE | 2019-04-22 14:29 | Discharge Summary ---
Providers - Providers Date of Admission: 04/17/19 14:12 Date of discharge: 04/22/19 Attending physician: GILSON LOPEZ 04/17/19 17:02 Consult to Physician [CONS] Routine Comment: Consulting Provider: NICKO NICK Physician Instructions: Reason For Exam: GI bleed 04/17/19 17:15 Consult to Physician [CONS] Routine Comment: Consulting Provider: SHERRELL GALE Physician Instructions: Reason For Exam: End-stage renal disease 04/18/19 07:41 Occupational Therapy Evaluate and Treat [CONS] Routine Comment: Reason For Exam: ATAX[facility] Physical Therapy Evaluation and Treat [CONS] Routine Comment: Reason For Exam: ATAXIA 04/21/19 18:44 Consult to Physician [CONS] Routine Comment: Consulting Provider: RAYSHAWN LOWRY Physician Instructions: Reason For Exam: Polypoid maass Colonn Primary care physician: [facility], Hospitalization Condition: Stable Hospital course: Patient is a 74-year-old woman with a history of HTN, CHF (unknown EF), ESRD on HD (M, W, F), TIA, recent clean base PUD without bleeding and diverticulosis who presents to [facility] ED for bright red blood per rectum and hypotension. She was recently discharged from the hospital after an upper endoscopy discovered a clean-based ulcer with antral gastritis without bleeding and was to follow with GI for pathology. Discharge Diagnoses: Acute on chronic GI blood loss anemia, [address] Perez, but [email or web address] EMR rejected order, reason to be investigated, now h/h drop lower: transfused 1 unit of PRBC on 04/19/19, GI to follow up Descending Colon mass, colon bx results showed inflammation and no malignancy; Gen. Surgery will treat as a diverticulitis but need repeat in ~4 weeks BRBPR, most likely Diverticular bleed with Diverticulitis: Hypotension, now hypertensive: continue clonidine patch, stopped IVF ordered by Dr. Mahoney because h/o chf, esrd, elevated bp End-stage renal disease: on Hemodialysis, Nephrology following Morbid obesity, bmi 38: dietary changes Diabetes mellitus type 2, with a1c <4, resolved; stop SSI H/O congestive heart failure systolic presumed SIRS without organ dysfunction, poa, Leukocytosis likely reactive-improving Diverticulosis: GI deciding about repeat c-scopy DVT: scd only due to gib Disposition: TO HOME OR SELFCARE Time spent for discharge: 36 minutes Core Measure Documentation - Palliative Care Palliative Care/ Comfort Measures: Not Applicable - Core Measures Any of the following diagnoses?: none - VTE Discharge Requirements Deep Vein Thrombosis/Pulmonary Embolism Present on Admission: No Has pt received <5 days of overlap therapy or INR<2.0: No Anticoagulant overlap therapy prescribed at discharge: No Contraindication No Overlap Therapy order at DC: Not Indicated Exam - Physical Exam Narrative exam: Gen: WDWN, NAD, Awake, Alert, Orientated HEENT: NCAT, EOMI, PERRL, OP Clear Neck: supple, no adenopathy, no thyromegaly, no JVD CVS/Heart: RRR, normal S1S2, pulses present bilaterally Chest/Lungs: CTA B, Symmetrical chest expansion, good air entry bilaterally GI/Abdomen: soft, NTND, good bowel sounds, no guarding or rebound /Bladder: no suprapubic tenderness, no CVA or paraspinal tenderness Extermity/Skin: no c/c/e, no obvious rash MSK: FROM x 4 - Constitutional Vitals: Temp Pulse Resp BP Pulse Ox 98.3 F 105 H 20 128/59 96 04/22/19 07:34 04/22/19 07:34 04/22/19 07:34 04/22/19 07:34 04/22/19 08:56 Plan Activity: other (no strenous activity) Diet: renal Additional Instructions: repeat colonoscopy in ~4 weeks Follow up with: HARMEET ALVARENGA MD [Staff Physician] - 7 Days NICKO NICK MD [Staff Physician] - 7 Days RAYSHAWN LOWRY MD [Staff Physician] - 14 Days Forms: Accompanied Note Prescriptions: Pantoprazole [Protonix TAB] 40 mg PO BID #60 tablet OLANzapine [Zyprexa] 10 mg PO DAILY #30 tab
[2019-04-22 20:06] VITALS: BP 113/57
== END 2019-04-22 17:30 | disposition home health service (06) | DRG 377 ==
LOC: ED 10:41 → 2B-ACE 14:12
PROVIDERS: ADMIT Internal Medicine; ATTEND Internal Medicine
PROC: 5A1D70Z Performance of Urinary Filtration, Intermittent, Less than 6 Hours Per Day (ICD-10-PCS; principal; 2019-04-18)
PROC: 30233N1 Transfusion of Nonautologous Red Blood Cells into Peripheral Vein, Percutaneous Approach (ICD-10-PCS; 2019-04-19)
PROC: 5A1D70Z Performance of Urinary Filtration, Intermittent, Less than 6 Hours Per Day (ICD-10-PCS; 2019-04-20)
PROC: 0DBM8ZX Excision of Descending Colon, Via Natural or Artificial Opening Endoscopic, Diagnostic (ICD-10-PCS; 2019-04-20)
PROC: 5A1D70Z Performance of Urinary Filtration, Intermittent, Less than 6 Hours Per Day (ICD-10-PCS; 2019-04-22)
DX: K57.91 Diverticulosis of intestine, part unspecified, without perforation or abscess with bleeding (principal); N18.6 End stage renal disease; E66.2 Morbid (severe) obesity with alveolar hypoventilation; R65.10 Systemic inflammatory response syndrome (SIRS) of non-infectious origin without acute organ dysfunction; D62 Acute posthemorrhagic anemia; I13.2 Hypertensive heart and chronic kidney disease with heart failure and with stage 5 chronic kidney disease, or end stage renal disease; I50.20 Unspecified systolic (congestive) heart failure; K21.9 Gastro-esophageal reflux disease without esophagitis; M19.90 Unspecified osteoarthritis, unspecified site; F03.90 Unspecified dementia, unspecified severity, without behavioral disturbance, psychotic disturbance, mood disturbance, and anxiety; D63.1 Anemia in chronic kidney disease; K62.5 Hemorrhage of anus and rectum; K63.89 Other specified diseases of intestine; I95.9 Hypotension, unspecified; K64.8 Other hemorrhoids; E11.42 Type 2 diabetes mellitus with diabetic polyneuropathy; K63.5 Polyp of colon; K29.60 Other gastritis without bleeding; G89.4 Chronic pain syndrome; D72.829 Elevated white blood cell count, unspecified; E78.5 Hyperlipidemia, unspecified; Z91.041 Radiographic dye allergy status; E11.22 Type 2 diabetes mellitus with diabetic chronic kidney disease; Z96.659 Presence of unspecified artificial knee joint; Z88.2 Allergy status to sulfonamides; Z79.4 Long term (current) use of insulin; Z88.0 Allergy status to penicillin; Z88.6 Allergy status to analgesic agent; Z86.73 Personal history of transient ischemic attack (TIA), and cerebral infarction without residual deficits; Z90.49 Acquired absence of other specified parts of digestive tract; Z90.710 Acquired absence of both cervix and uterus; Z83.3 Family history of diabetes mellitus; Z82.49 Family history of ischemic heart disease and other diseases of the circulatory system; Z68.38 Body mass index [BMI] 38.0-38.9, adult; Z71.3 Dietary counseling and surveillance; Z87.01 Personal history of pneumonia (recurrent); Z99.2 Dependence on renal dialysis
CPT/HCPCS: 36415; 74176; 80048; 80053; 82962; 83036; 85007; 85014; 85018; 85025; 85027; 85610; 85730; 86850; 86900; 86901; 86920; 87116; 88305; 96374; G0378; A9270-GY; C9113; J1170; J2704; J7030; J7040; J7042; P9016